=== PATIENT | female | born 1950 | race Caucasian/White ===

== ENCOUNTER → 2021-02-23 | Outpatient (CLI) | payer MEDICARE, BC ==
[2021-02-23 13:43] LABS: Basophils # (A) 0.1 k/uL (0-0.2); Basophils % (A) 1 %; Eosinophils # (A) 0.1 k/uL (0-0.7); Eosinophils % (A) 1 %; HCT 30.9 % (34.0-46.0); HGB 9.5 gm/dL (11.4-16.0); Hypochromasia Moderate; Lymphocytes # (A) 1.7 k/uL (1.0-4.8); Lymphocytes % (A) 19 %; MCH 26.4 pg (25.0-35.0); MCHC 30.7 g/dL (31.0-37.0); MCV 85.8 fL (80.0-100.0); Monocytes # (A) 0.2 k/uL (0-1.0); Monocytes % (A) 2 %; Neutrophils % (A) 77 %; Platelet Count 317 k/uL (150-450); RBC 3.61 m/uL (3.80-5.40); WBC 9.1 k/uL (3.8-10.6)
[2021-02-23 14:14] LABS: Potassium 4.6 mmol/L (3.5-5.1)
== END | disposition home or self-care (01) ==
LOC: LABPAT 12:09
PROVIDERS: ATTEND Urology
DX: Z01.812 Encounter for preprocedural laboratory examination (principal); C67.9 Malignant neoplasm of bladder, unspecified
CPT/HCPCS: 36415; 80048; 85025

== ENCOUNTER → 2021-02-27 | Outpatient (CLI) | payer MEDICARE | END | disposition home or self-care (01) | LOC: LABPAT 10:25 | PROVIDERS: ATTEND Urology | DX: Z01.818 Encounter for other preprocedural examination (principal) | CPT/HCPCS: 93005 ==

== ENCOUNTER 2021-03-02 06:41 | Day surgery (SDC) | payer BC, MEDICARE ==
[2021-02-24 12:34] VITALS: BMI 27.8
--- NOTE | 2021-03-01 22:23 | P.HPIHPCON ---
History of Present Illness H&P Date: 03/01/21 Chief Complaint: bladder mass 70 yo male with hx of gross hematuria. She underwent a cystoscopy that showed a large bladder tumor , involving the Trigone and the posterior bladder wall. neither of the ureteral orifices were visualized. Discuss with her the next step is to proceed with TURBT under anesthesia. discussed will attempt to do bilateral retrograde pyelogram at the same time. Discussed the risk which includes by now limited to bleeding, infection , bladder perforation, ureteral orfices scarring. Discussed the potential of stent placement. Discussed potential of needing repeated operations in the future. She understood all the risk and agreed to proceed TURBT and bilateral reterograde pyelogram Consent for Procedure: I have explained the operation/procedure to the patient, including the risks, benefits, side effects, alternative therapies (including not receiving the proposed treatment or service), the likelihood of the patient achieving his/her goals, and potential recuperation problems for the procedure/sedation/analgesia, as well as any blood products, if indicated. I also explained to the patient the risks, benefits and side effects of the alternatives, as well as the risks related to not receiving the proposed procedure, care, treatment, or services. Past Medical History Past Medical History: Cancer, Eye Disorder, Liver Disease, Thyroid Disorder Additional Past Medical History / Comment(s): Hx blood clots in eyes. 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 Hx Hepatitis B. Graves Disease. Current bladder cancer. History of Any Multi-Drug Resistant Organisms: None Reported Past Surgical History: Appendectomy, Hysterectomy, Tubal Ligation Additional Past Surgical History / Comment(s): Major/multiple surgeries on both eyes. Socket removed from right eye. Past Anesthesia/Blood Transfusion Reactions: No Reported Reaction Past Psychological History: No Psychological Hx Reported Smoking Status: Current every day smoker Past Alcohol Use History: None Reported Additional Past Alcohol Use History / Comment(s): Has been smoking many yrs, 1PPD. Past Drug Use History: None Reported - Past Family History Mother Family Medical History: Neurologic Disorder Additional Family Medical History / Comment(s): Carole Diana. Father Family Medical History: Unable to Obtain Medications and Allergies Home Medications Medication Instructions Recorded Confirmed Type Aspirin [Adult Low Dose Aspirin EC] 81 mg PO DAILY 02/24/21 02/24/21 History Morphine Sulfate [Maile] 50 mg PO BID 02/24/21 02/24/21 History QUEtiapine [SEROquel] 50 mg PO HS 02/24/21 02/24/21 History Synthroid (Unknown Dose) 1 tab PO DAILY 02/24/21 02/24/21 History oxyCODONE ER [OxyCONTIN] 15 mg PO BID 02/24/21 02/24/21 History Allergies Allergy/AdvReac Type Severity Reaction Status Date / Time Penicillins Allergy Dyspnea Verified 02/24/21 11:46 Surgical - Exam - General well developed, moderate distress, moderate pain - Eyes PERRL, normal ocular movement - ENT normal pinna, normal nares - Respiratory normal expansion, normal respiratory effort - Psychiatric oriented to time, oriented to person, oriented to place Assessment and Plan Assessment: 70 yo female with hx of bladder tumor -OR TURBT and bilateral reterograde peylogram
[~2021-03-02 06:41] MED LIST: CIPROFLOXACIN/DEXTROSE PMX 400 MG in DEXTROSE/WATER 1 200ML.BAG IVPB PRN
[2021-03-02] MEDS ORDERED: ONDANSETRON 4 MG/2 ML VIAL ONE (07:06)
[2021-03-02] MEDS ORDERED: LACTATED RINGERS 1,000 ML IV ONE ×2 (07:22→09:18)
[2021-03-02] MEDS ORDERED: LIDOCAINE 1% (10MG/ML) FOR IV START INTRADERMA ONE (07:22)
[2021-03-02] MEDS ORDERED: DEXAMETHASONE SOD PHOSPHATE 4 MG/ML 1 ML VIAL IV ONE (07:23)
[2021-03-02] MEDS ORDERED: ONDANSETRON 4 MG/2 ML VIAL IVP ONE (07:23)
[2021-03-02] MEDS ORDERED: HYDROmorphone (PF) 1 MG/ML ONE (07:30)
[2021-03-02] MEDS ORDERED: ROCURONIUM 10 MG/ML (5 ML VIAL) IV ONE (07:30)
[2021-03-02] MEDS ORDERED: WATER FOR INJECTION, STERILE 10 ML VIAL IV ONE (07:30)
[2021-03-02] MEDS ORDERED: ePHEDrine SULFATE/0.9% NACL/PF 50 MG/5 ML SYRINGE IV ONE (07:30)
[2021-03-02] MEDS ORDERED: PROPOFOL 10 MG/ML 20 ML VIAL IV ONE (07:30)
[2021-03-02] MEDS ORDERED: GLYCOPYRROLATE 0.2 MG/ML 2 ML VIAL ONE (07:30)
[2021-03-02] MEDS ORDERED: NEOSTIGMINE 1 MG/ML 10 ML VIAL ONE (07:30)
[2021-03-02] MEDS ORDERED: fentaNYL (PF) 50 MCG/ML 2 ML AMP ONE (07:30)
[2021-03-02] MEDS ORDERED: MIDAZOLAM 2 MG/2 ML VIAL ONE (07:30)
[2021-03-02] MEDS ORDERED: LIDOCAINE 1% INJ 10MG/ML (20 ML MDV) ONE (07:30)
[2021-03-02] MEDS ORDERED: SUCCINYLCHOLINE CHLORIDE 100 MG/5 ML SYR IV ONE (07:30)
[2021-03-02] MEDS ORDERED: IOPAMIDOL-370 50ML BTL MISCELLANE ONE (07:35)
--- NOTE | 2021-03-02 11:04 | P.OP ---
Date of Procedure: 03/02/21 Preoperative Diagnosis: Bladder tumor Postoperative Diagnosis: Same Procedure(s) Performed: TURBT (large) Implants: none Anesthesia: RADHA Surgeon: Eddie Forrest Estimated Blood Loss (ml): 50 Pathology: other (bladder tumor) Condition: stable Disposition: PACU Indications for Procedure: 70 yo male with hx of gross hematuria. She underwent a cystoscopy that showed a large bladder tumor , involving the Trigone and the posterior bladder wall. neither of the ureteral orifices were visualized. Discuss with her the next step is to proceed with TURBT under anesthesia. discussed will attempt to do bilateral retrograde pyelogram at the same time. Discussed the risk which includes by now limited to bleeding, infection , bladder perforation, ureteral orfices scarring. Discussed the potential of stent placement. Discussed potential of needing repeated operations in the future. She understood all the risk and agreed to proceed TURBT and bilateral reterograde pyelogram Operative Findings: Lateral large bladder tumor involving the trigone, the left lateral wall, the dome, the anterior bladder wall, and the bladder neck, tumor covered approximetely 70% of the bladder total area of resection was greater than 15 cm Description of Procedure: Patient was brought to the operating room, general anesthesia was induced. She was prepped and draped so fashion a placement dorsal lithotomy position. Resectoscope fitted with a 25-Romanian sheath was inserted per urethra, cystoscopy was performed which showed a large bladder tumor covering approximately 70% of the bladder. The tumor involved the trigone, the left lateral wall, the dome, the anterior bladder wall, and the bladder neck. Using bipolar resectoscope the tumor was resected down, initially resection was started at the trigone and then carried to the left lateral wall area of note neither of the ureteral orifices were visualized during resection, but caution was used not use cauterize at the areas of the ureteral orifices. approximately 3 hours were spent resecting the tumor, approximately 80% of the tumor was resected, there was still some residual tumor at the dome and the bladder neck, decision was made not to proceed with resecting those areas given the poor visualization, and more than 3 hours were spent resecting. additionally tumor was consistent with T2 bladder cancer. the bladder was emptied and the case, tumor chips were sent to pathology. A 22-Romanian hematuria catheter was placed and irrigated to light pink. The patient tolerated the procedure well was taken to PACU in stable cond ition
[2021-03-02 11:13] VITALS: TEMP 96.9
[2021-03-02] MEDS ORDERED: HYDROmorphone 1 MG/ML 1 ML SYRINGE IVP ONE ×2 (11:50→11:57)
[2021-03-02] MEDS ORDERED: ACETAMINOPHEN IV (For NPO) 1,000 MG/100 ML VIAL IVPB ONE (12:36)
[2021-03-02] MEDS ORDERED: fentaNYL (PF) 50 MCG/ML 2 ML AMP IVP ONE (13:10)
[2021-03-02 15:52] VITALS: BP 110/77; PULSE 75; RESP 16
== END 2021-03-02 17:25 | disposition home or self-care (01) ==
LOC: OR 06:41
PROVIDERS: ATTEND Urology
DX: C67.9 Malignant neoplasm of bladder, unspecified (principal); K76.9 Liver disease, unspecified; E07.9 Disorder of thyroid, unspecified; G89.29 Other chronic pain; H57.10 Ocular pain, unspecified eye; H54.8 Legal blindness, as defined in USA; Z86.19 Personal history of other infectious and parasitic diseases; E05.00 Thyrotoxicosis with diffuse goiter without thyrotoxic crisis or storm; Z90.89 Acquired absence of other organs; Z98.51 Tubal ligation status; Z90.710 Acquired absence of both cervix and uterus; F17.210 Nicotine dependence, cigarettes, uncomplicated; Z87.442 Personal history of urinary calculi; Z97.2 Presence of dental prosthetic device (complete) (partial); Z82.0 Family history of epilepsy and other diseases of the nervous system; Z79.82 Long term (current) use of aspirin; Z79.890 Hormone replacement therapy; Z79.891 Long term (current) use of opiate analgesic; Z79.899 Other long term (current) drug therapy; Z88.0 Allergy status to penicillin
CPT/HCPCS: 88307; 52240; J2250; J1100; J2710; J2405; J2001; J3010; J0744; J1170; J0131; J0330; J2704; Q9967

== ENCOUNTER 2021-03-04 17:46 | Emergency (ER) | payer MEDICARE ==
[2021-03-04 17:54] VITALS: BP 118/70; PULSE 63; RESP 20; TEMP 98.7
[2021-03-04] MEDS ORDERED: HYDROmorphone 0.5 MG/0.5 ML SYRINGE IM STA (20:59)
--- NOTE | 2021-03-04 21:01 | ED ---
Recheck HPI - General Chief Complaint: Recheck/Abnormal Lab/Rx Stated Complaint: Catheter Issue Time Seen by Provider: 03/04/21 20:00 Source: patient Mode of arrival: ambulatory Limitations: no limitations - History of Present Illness Initial Comments: 70-year-old female who recently had a procedure to remove bladder cancer with indwelling Rios catheter. Patient states that she is now draining around the Rios catheter. She states she's had a lot of discomfort after the surgery in the lower suprapubic region. Patient denies any fevers chest pain shortness of breath or leg swelling. Patient denies additional complaints and states she presented for leakage of the Rios catheter today. Patient states she is just about due for her pain medications. Remaining of review systems negative upon arrival patient appears well nontoxic no acute distress - Related Data Home Medications Medication Instructions Recorded Confirmed Aspirin [Adult Low Dose Aspirin EC] 81 mg PO DAILY 02/24/21 03/02/21 Morphine Sulfate [Maile] 50 mg PO BID 02/24/21 03/02/21 QUEtiapine [SEROquel] 50 mg PO HS 02/24/21 03/02/21 Synthroid (Unknown Dose) 1 tab PO DAILY 02/24/21 03/02/21 oxyCODONE ER [OxyCONTIN] 15 mg PO BID 02/24/21 03/02/21 Previous Rx's Medication Instructions Recorded Oxybutynin Xl [Ditropan Xl] 5 mg PO DAILY #10 tab.er.24 03/02/21 Sulfamethox-Tmp 800-160Mg [Bactrim 1 tab PO Q12HR #6 tab 03/02/21 DS 800-160 mg] Allergies Allergy/AdvReac Type Severity Reaction Status Date / Time Penicillins Allergy Dyspnea Verified 03/04/21 17:54 Review of Systems ROS Statement: Those systems with pertinent positive or pertinent negative responses have been documented in the HPI. ROS Other: All systems not noted in ROS Statement are negative. Past Medical History Additional Past Medical History / Comment(s): Blind, Graves, Brain tumor. History of Any Multi-Drug Resistant Organisms: None Reported Additional Past Surgical History / Comment(s): Bladder surgery Past Psychological History: No Psychological Hx Reported Smoking Status: Current every day smoker Past Alcohol Use History: None Reported Past Drug Use History: None Reported General Exam - General Exam Comments Initial Comments: General: The patient is awake and alert, in no distress Eye: +3 mm pupils are equal, round and reactive to light, extra-ocular movements are intact. No nystagmus. There is normal conjunctiva bilaterally. No signs of icterus. Ears, nose, mouth and throat: There are moist mucous membranes and no oral lesions. Neck: The neck is supple, there is no tenderness or JVD. Cardiovascular: There is a regular rate and rhythm. No murmur, rub or gallop is appreciated. Respiratory: Lungs are clear to auscultation, respirations are non-labored, breath sounds are equal. No wheezes, stridor, rales, or rhonchi. Gastrointestinal: Soft, non-distended, non-tender abdomen without masses or organomegaly noted. There is no rebound or guarding present. Musculoskeletal: Normal ROM, no tenderness. Strength 5/5. Sensation intact. Radial pulses equal bilaterally 2+. Neurological: A&O x 3. CN II-XII intact grossly, There are no obvious motor or sensory deficits. Coordination appears grossly intact. Speech is normal. Skin: Skin is warm and dry and no rashes or lesions are noted. Psychiatric: Cooperative, appropriate mood & affect, normal judgment. Limitations: no limitations Course Vital Signs 03/04/21 17:51 Temperature 98.7 F Pulse Rate 63 Respiratory 20 Rate Blood Pressure 118/70 O2 Sat by Pulse 94 L Oximetry Medical Decision Making - Medical Decision Making 70-year-old female presenting for a leaking catheter. Catheter was removed and replaced there was a lot of tissue within the catheter most likely occluding causing the leakage. Patient has no leakage at this time. Patient has no fevers. She denies additional symptoms she states she does have some postoperative pain medicine present since the procedure note noted increase. Patient is provided 1 dose of IM Dilaudid for this pain and was discharged. Ever discussed the case by attending provider Disposition Clinical Impression: Malfunction of Rios catheter Disposition: HOME SELF-CARE Condition: Good Instructions (If sedation given, give patient instructions): Rios Catheter Placement and Care (ED) Additional Instructions: Please use medication as discussed. Please follow-up with family doctor or urologist in next 1- 2 days. Please return to emergency room if the symptoms increase or worsen or for any other concerns. Is patient prescribed a controlled substance at d/c from ED?: No Referrals: Mariana Nowak MD [Primary Care Provider] - 1-2 days Time of Disposition: 21:01
== END 2021-03-04 21:35 | disposition home or self-care (01) ==
LOC: EC 17:46
DX: T83.031A Leakage of indwelling urethral catheter, initial encounter (principal); F17.200 Nicotine dependence, unspecified, uncomplicated; Z85.51 Personal history of malignant neoplasm of bladder; Z88.0 Allergy status to penicillin; Z79.82 Long term (current) use of aspirin
CPT/HCPCS: 99283; 96372; J1170

== ENCOUNTER 2021-03-05 19:58 | Emergency (ER) | payer MEDICARE ==
[2021-03-05 20:09] VITALS: BP 104/55; PULSE 75; RESP 18; TEMP 97.9
--- NOTE | 2021-03-05 22:10 | ED ---
Female Urogenital HPI - General Chief complaint: Urogenital Stated complaint: Urogenital Time Seen by Provider: 03/05/21 21:44 Source: patient Mode of arrival: wheelchair Limitations: no limitations - History of Present Illness Initial comments: 70-year-old female presenting to the emergency department today for chief complaint of blanco leaking. Patient states her Blanco has not been leaking on and off for 4 days. She states that she recently had bladder cancer surgery done by Dr Forrest. Pt states she would like to just have the blanco removed at this time. Patient denies fevers. Pt denies increasing pain. Patient denies blood in urine. Patient has no additional complaints. Upon arrival she appears nontoxic in no acute distress. - Related Data Home Medications Medication Instructions Recorded Confirmed QUEtiapine [SEROquel] 50 mg PO HS 02/24/21 03/05/21 oxyCODONE ER [OxyCONTIN] 15 mg PO BID 02/24/21 03/05/21 Levothyroxine Sodium [Synthroid] 175 mcg PO DAILY 03/05/21 03/05/21 Morphine Sulfate [Morphine Sulfate 60 mg PO BID 03/05/21 03/05/21 ER] Previous Rx's Medication Instructions Recorded Oxybutynin Chloride [Ditropan] 5 mg PO TID 5 Days #15 tab 03/05/21 Allergies Allergy/AdvReac Type Severity Reaction Status Date / Time Penicillins Allergy Dyspnea Verified 03/05/21 22:58 Review of Systems ROS Statement: Those systems with pertinent positive or pertinent negative responses have been documented in the HPI. ROS Other: All systems not noted in ROS Statement are negative. Past Medical History Additional Past Medical History / Comment(s): Blind, Graves, Brain tumor. History of Any Multi-Drug Resistant Organisms: None Reported Past Surgical History: Hysterectomy, Tonsillectomy Additional Past Surgical History / Comment(s): Bladder surgery- tumor removed from bladder. eys Past Psychological History: Anxiety Smoking Status: Current every day smoker Past Alcohol Use History: None Reported Past Drug Use History: None Reported General Exam - General Exam Comments Initial Comments: General: The patient is awake and alert, in no distress, and does not appear a cutely ill. Eye: Pupils are equal, round and reactive to light, extra-ocular movements are intact. No nystagmus. There is normal conjunctiva bilaterally. No signs of icterus. Cardiovascular: There is a regular rate and rhythm. No murmur, rub or gallop is appreciated. Respiratory: Lungs are clear to auscultation, respirations are non-labored, breath sounds are equal. No wheezes, stridor, rales, or rhonchi. Gastrointestinal: Soft, non-distended, non-tender abdomen without masses or or ganomegaly noted. There is no rebound or guarding present. Flushed blanco catheter without resistance. Musculoskeletal: Normal ROM, no tenderness. Strength 5/5. Sensation intact. Pulses equal bilaterally 2+. Neurological: A&O x 3. CN II-XII intact grossly, There are no obvious motor or sensory deficits. Coordination appears grossly intact. Speech is normal. Skin: Skin is warm and dry and no rashes or lesions are noted. Psychiatric: Cooperative, appropriate mood & affect, normal judgment. Limitations: no limitations Course Vital Signs 03/05/21 20:04 Temperature 97.9 F Pulse Rate 75 Respiratory 18 Rate Blood Pressure 104/55 O2 Sat by Pulse 99 Oximetry - Reevaluation(s) Reevaluation #1: Consulted Dr. Clarke covering for Dr Forrest recommending keeping blanco in if flushing and begin ditropan 5mg TID. Medical Decision Making - Medical Decision Making 70-year-old male presenting to the ER today for chief complaint of leaking catheter. Consulted urologist Dr Clarke. Recommended TURP hand as well as keeping Blanco in place.. Blanco did flush without difficulty. No additional complaints or concerns. patient discharged appearing well. Disposition Clinical Impression: Blanco catheter problem Disposition: HOME SELF-CARE Condition: Good Instructions (If sedation given, give patient instructions): Blanco Catheter Placement and Care (ED) Additional Instructions: Please use medication as discussed. Please follow-up with urology in 2- 3days. Please return to emergency room if the symptoms increase or worsen or for any other concerns. Prescriptions: Oxybutynin Chloride [Ditropan] 5 mg PO TID 5 Days #15 tab Is patient prescribed a controlled substance at d/c from ED?: No Referrals: Mariana Nowak MD [Primary Care Provider] - 1-2 days Time of Disposition: 23:07
[2021-03-05] MEDS ORDERED: OXYBUTYNIN CHLORIDE 5 MG TAB PO ONE (23:05)
== END 2021-03-05 23:55 | disposition home or self-care (01) ==
LOC: EC 19:58
DX: T83.031A Leakage of indwelling urethral catheter, initial encounter (principal); F41.9 Anxiety disorder, unspecified; F17.200 Nicotine dependence, unspecified, uncomplicated; Z88.0 Allergy status to penicillin
CPT/HCPCS: 99283

== ENCOUNTER → 2021-03-28 | Outpatient (CLI) | payer MEDICARE, BC ==
--- NOTE | 2021-03-29 07:01 | CT ---
EXAMINATION TYPE: CT abdomen pelvis wo con DATE OF EXAM: 03/28/2021 HISTORY: Neoplasm of bladder CT DLP: 767 mGycm. Automated Exposure Control for Dose Reduction was Utilized. TECHNIQUE: CT scan of the abdomen and pelvis is performed without oral or IV contrast. COMPARISON: Renal ultrasound June 15, 2011 FINDINGS: Within the limitations of a non-contrast study, the following observations are made. LUNG BASES: From motion artifact degradation, lung bases grossly clear. LIVER/GB: Prominent right hepatic lobe. Intraluminal irregular marginated hyperdense gallstones in ga llbladder. No surrounding inflammatory change. Gallbladder wall thickness perhaps mildly thickened. M ild extrahepatic biliary dilatation up to 11 mm coronal image 27. Mild left-sided central intrahepati c biliary dilatation . Slight gradual tapering towards the ampulla, no obstructing hyperdense calculu s clearly seen. PANCREAS: Probably moderate generalized atrophy. SPLEEN: No significant abnormality is seen. ADRENALS: Low dense 1.8 cm right adrenal mass axial image 17 consistent with benign lipid rich adenom a. KIDNEYS: Right kidney has 2.3 cm low dense lesion suspected simple thin-walled cyst posteriorly mid t o lower pole level axial image 30. Left kidney has 1.3 cm posterior exophytic low-density lesion susp ected thin-walled cyst lower pole level axial image 33. There is [id number] left-sided hydron ephrosis. No right-sided hydronephrosis. There is large lobulated irregular soft tissue mass occupyin g left testicle bladder with poor margins, there is indistinct fat plane from the remnant lower uteri ne segment or cervix axial image 65 for reference. Some irregular hyperdense material within bladder lumen could reflect internal debris. Lobulated and irregular bladder mass or neoplasm measures roughl y 8.5 x 7.0 x 6.5 cm axial image 64 and coronal image 54 BOWEL: Slightly suboptimal evaluation of bowel without enteric contrast. No suspicious small or large bowel dilatation. Small bowel feces sign distal ileum.. GENITAL ORGANS: Uterus is noted surgically absent. Poor fat plane separation of the lower uterine seg ment and/or cervix with adjacent bladder mass or neoplasm LYMPH NODES: No greater than 1cm abdominal or pelvic lymph nodes are appreciated. OSSEOUS STRUCTURES: Levoconvex scoliosis centered at L3-L4 level. Posterior disc herniations L3-L4 an d L1-L2 levels efface the anterior thecal sac. Moderate disc space narrowing and vacuum disc phenomen on L5-S1 level. Facet arthropathy lower lumbar levels. Moderate axial joint space loss in both hips. OTHER: Mild calcified plaque of the aorta extends into branch vessels. IMPRESSION: 1. Large bladder mass or neoplasm in the left aspect of bladder as irregular and lobulated margins, i ndistinct fat plane from the adjacent remnant lower uterine segment and/or cervix. Cannot exclude loc al invasion. Neoplasm is causing moderate to severe left-sided obstructive hydronephrosis. 2. Gallstone in gallbladder with perhaps mild gallbladder wall thickening. There is mild borderline m oderate central left intrahepatic and extrahepatic biliary dilatation. Correlate to exclude acute cho lecystitis. Consider follow-up ERCP or MRCP evaluation.
== END | disposition home or self-care (01) ==
LOC: RADCTMAIN 16:00
PROVIDERS: ATTEND Urology
DX: C67.9 Malignant neoplasm of bladder, unspecified (principal); K80.20 Calculus of gallbladder without cholecystitis without obstruction; N13.30 Unspecified hydronephrosis
CPT/HCPCS: 74176; 82565; 84520

== ENCOUNTER 2021-04-03 09:05 | Day surgery (SDC) | payer MEDICARE, BC ==
[2021-03-30 16:11] VITALS: BMI 27.4
--- NOTE | 2021-03-31 17:04 | P.HPIHPCON ---
History of Present Illness H&P Date: 03/31/21 Chief Complaint: Left hydronephrosis This is a 70-year-old female with history of bladder cancer, she underwent TURBT, attempted stent placements on March 02. stent placement was unsuccessful due to nonvisualization of the ureteral orifice. She underwent a CT abdomen and pelvis that demonstrated evidence of an extensive bladder tumor, causing severe left hydronephrosis on the left side. Patient has been having worsening creatinine. Discussed with her given her bladder cancer , and evidence of local invasion, the next a piece is to proceed with a cystectomy. Discussed with her we'll attempt to optimize her kidney function prior to proceeding with surgery. Discussed with her the option of doing an nephrostomy tube placement. Discussed with her the risks which includes but not limited to bleeding, infection, injury to nearby organs. She understood all the risk and agreed to proceed with a nephrostomy tube. Nephrostomy tube will be performed by interventional radiology Consent for Procedure: I have explained the operation/procedure to the patient, including the risks, benefits, side effects, alternative therapies (including not receiving the proposed treatment or service), the likelihood of the patient achieving his/her goals, and potential recuperation problems for the procedure/sedation/analgesia, as well as any blood products, if indicated. I also explained to the patient the risks, benefits and side effects of the alternatives, as well as the risks related to not receiving the proposed procedure, care, treatment, or services. Past Medical History Past Medical History: Cancer, Thyroid Disorder Additional Past Medical History / Comment(s): bladder cancer, Blind, Graves, Brain tumor, no surgery History of Any Multi-Drug Resistant Organisms: None Reported Past Surgical History: Hysterectomy, Tonsillectomy Additional Past Surgical History / Comment(s): Bladder surgery- tumor removed from bladder. eye sx Past Anesthesia/Blood Transfusion Reactions: No Reported Reaction Smoking Status: Current every day smoker Medications and Allergies Home Medications Medication Instructions Recorded Confirmed Type QUEtiapine [SEROquel] 50 mg PO HS 02/24/21 03/30/21 History oxyCODONE ER [OxyCONTIN] 15 mg PO BID 02/24/21 03/30/21 History Levothyroxine Sodium [Synthroid] 175 mcg PO DAILY 03/05/21 03/30/21 History Morphine Sulfate [Morphine Sulfate 60 mg PO BID 03/05/21 03/30/21 History ER] Allergies Allergy/AdvReac Type Severity Reaction Status Date / Time Penicillins Allergy Dyspnea Verified 03/30/21 16:02 Surgical - Exam - General well developed, well nourished, no distress, no pain - Eyes PERRL, normal ocular movement - ENT normal nares, normal mucosa - Respiratory normal expansion, normal respiratory effort - Psychiatric oriented to time, oriented to person, oriented to place Assessment and Plan Assessment: 70-year-old female history of left-sided hydronephrosis -Left nephrostomy tube placement
[~2021-04-03 09:05] MED LIST changes: -CIPROFLOXACIN/DEXTROSE PMX 400 MG in DEXTROSE/WATER 1 200ML.BAG IVPB PRN; +LEVOFLOXACIN 250MG-D5W PMX 250 MG in DEXTROSE/WATER 1 50ML.BAG IVPB ONE
[2021-04-03 10:16] LABS: Anisocytosis Slight; Basophils % (A) 0 %; Eosinophils # (A) 0.1 k/uL (0-0.7); Eosinophils % (A) 1 %; HCT 28.8 % (34.0-46.0); HGB 8.8 gm/dL (11.4-16.0); Hypochromasia Marked; Lymphocytes # (A) 1.3 k/uL (1.0-4.8); Lymphocytes % (A) 16 %; MCH 26.3 pg (25.0-35.0); MCHC 30.7 g/dL (31.0-37.0); MCV 85.8 fL (80.0-100.0); Mean Platelet Volume 7.1; Monocytes # (A) 0.2 k/uL (0-1.0); Monocytes % (A) 2 %; Neutrophils # (A) 6.5 k/uL (1.3-7.7); Neutrophils % (A) 80 %; Platelet Count 270 k/uL (150-450); RBC 3.36 m/uL (3.80-5.40); RDW 17.2 % (11.5-15.5); WBC 8.1 k/uL (3.8-10.6)
[2021-04-03 10:29] LABS: Calcium 10.3 mg/dL (8.4-10.2)
[2021-04-03] MEDS: MIDAZOLAM 2 MG/2 ML VIAL IVP ONE ×5 (10:47→11:57)
[2021-04-03] MEDS ORDERED: IV FLUID CONTINUATION 300 ML IV ONE (10:48)
[2021-04-03] MEDS: fentaNYL (PF) 50 MCG/ML 2 ML AMP IVP ONE ×3 (11:00→12:14)
[2021-04-03] MEDS ORDERED: fentaNYL (PF) 50 MCG/ML 2 ML AMP IVP ONE ×2 (11:15→11:49)
[2021-04-03] MEDS ORDERED: IOPAMIDOL-250 50ML BTL INTRAARTER ONE (12:14)
[2021-04-03 13:47] VITALS: RESP 16
[2021-04-03 16:43] VITALS: BP 84/50; PULSE 68
--- NOTE | 2021-04-04 14:04 | CT ---
EXAMINATION TYPE: CT Guided Neph Tube Change, IR nephrostomy, US guide intraoperative DATE OF EXAM: 04/03/2021 COMPARISON: CT abdomen pelvis 03/28/2021 demonstrating left hydroureteronephrosis and obstructing larg e bladder mass. HISTORY: Hydronephrosis, ureteral obstruction WIRE BRUSH MAKER: Dr. Renate Davison MEDICATIONS: Levaquin 250 mg-D5x Pmx premix 50 mL Versed 1.5 mg Fentanyl 150 mcg PROCEDURE: The procedure was discussed with the patient. The risks, complications, benefits, and alternatives we re discussed and any questions were answered. Informed consent was obtained. Levaquin 250 mg was administered intravenously prior to start of procedure. Moderate sedation was administered and monitored by radiology nursing, under direct physician supervi raiza. Preprocedure preliminary ultrasound imaging demonstrated moderate left hydronephrosis, with significa nt bowel gas surrounding the left kidney, and a small intercostal window for access. Patient demonstrated significant movement during the portion of the procedure within the Fire Prevention Captain, de spite reminders to remain still. Maximal barrier technique was utilized. The skin overlying the left kidney was localized using ultra sound and the overlying skin prepped and draped. Ultrasound was utilized with sterile technique. 1% Lidocaine used for local anesthesia. Skin chuck was made with a scalpel. Access was gained under ult rasound with a 20-gauge needle to the left kidney. Urine returned in the hub of the needle. Gentle hand-injection of 3 mm of iodinated contrast under fluoroscopy demonstrated good flow into the left r enal collecting system. A 0.018 inch wire was advanced under fluoroscopy, and seen within the left r enal collecting system. As attempts were made to dilate the access site, the patient was moving sign ificantly, and access was lost. There was also marked obscuration of the kidney due to significant mellisa wel gas. The decision was made to move the procedure to the CT scanner. All needles were removed and a sterile bandage was applied to the access site. The patient was placed prone on the CT table. Intraprocedure preliminary CT imaging demonstrated iodi nated contrast within the left renal collecting system with moderate hydronephrosis and hydroureter. Maximal barrier technique was utilized. The skin overlying the left kidney was localized using CT and the overlying skin prepped and draped. 1% lidocaine used for local anesthesia. Skin chuck was made wi th a scalpel. Access was gained with intermittent CT guidance with a 21-gauge needle to the left kidn ey. Urine returned in the hub of the needle. A 0.018 inch wire was advanced under intermittent CT kanu johnson seen within the left renal collecting system. The access site was dilated and subsequently an 8.5 English coiled catheter was advanced over wire in the renal pelvis and proximal ureter and fixe d in place. Urine returned in the hub of the catheter. Catheter was fixed to the skin with a stay f ix sterile dressing. The patient remained in stable condition without immediate complication. The p atient was discharged to the short stay unit. Moderate sedation total time: 2.5 hours IMPRESSION: STATUS POST LEFT 8.5 WELSH NEPHROSTOMY TUBE PLACEMENT WITH ULTRASOUND, FLUOROSCOPIC, AND CT GUIDANCE .
--- NOTE | 2021-04-04 14:05 | P.OP ---
Date of Procedure: 04/03/21 Preoperative Diagnosis: Left hydronephrosis due to obstructing bladder mass Postoperative Diagnosis: same Procedure(s) Performed: Ultrasound, fluoroscopy, and CT guided left percutaneous nephrostomy tube placement Implants: 8.5 FR coiled drainage catheter Anesthesia: MAC, local Surgeon: Renate Davison Estimated Blood Loss (ml): 5 Pathology: none sent Condition: stable Disposition: observation
== END 2021-04-03 17:10 | disposition home or self-care (01) ==
LOC: CATHCVL 09:05
PROVIDERS: ATTEND Radiology Diagnostic Radiology
DX: N13.1 Hydronephrosis with ureteral stricture, not elsewhere classified (principal); N32.9 Bladder disorder, unspecified; E07.9 Disorder of thyroid, unspecified; H54.7 Unspecified visual loss; E05.00 Thyrotoxicosis with diffuse goiter without thyrotoxic crisis or storm; Z85.841 Personal history of malignant neoplasm of brain; Z90.710 Acquired absence of both cervix and uterus; Z90.89 Acquired absence of other organs; Z98.890 Other specified postprocedural states; Z79.890 Hormone replacement therapy; Z79.891 Long term (current) use of opiate analgesic; Z79.899 Other long term (current) drug therapy; Z88.0 Allergy status to penicillin
CPT/HCPCS: 80048; 85025; 87635; 50435; J2250; J1956; J3010; Q9966

== ENCOUNTER 2021-04-14 | Day surgery (SDC) | payer MEDICARE | END 2021-04-14 16:00 | disposition home or self-care (01) | DX: Z43.6 Encounter for attention to other artificial openings of urinary tract (principal) ==

== ENCOUNTER 2021-05-04 | Day surgery (SDC) | payer MEDICARE | END 2021-05-04 16:50 | disposition home or self-care (01) | DX: Z43.6 Encounter for attention to other artificial openings of urinary tract (principal) | CPT/HCPCS: 99213 ==

== ENCOUNTER 2021-05-04 16:56 | Inpatient (IN) | payer MEDICARE ==
[2021-05-04] MEDS ORDERED: SODIUM CHLORIDE 0.9% 500 ML 500 ML IV STA (19:14)
--- NOTE | 2021-05-04 19:25 | ED ---
General Adult HPI - General Chief complaint: Weakness Stated complaint: CA PT, Altered mental status Time Seen by Provider: 05/04/21 18:59 Source: family Mode of arrival: wheelchair Limitations: no limitations - History of Present Illness Initial comments: 70 year-old female patient presents to the emergency department for evaluation of increased altered mental status. Patient was recently diagnosed with bladder cancer, underwent surgery, they were unable to remove the entire tumor and she is awaiting a plan after a physician at [facility] and Dr. Forrest urology consult with each other. Daughter states that over the last two weeks she has seemed to decline. States that she is very confused, generally weak, and unable to care for herself. Daughter states she will have episodes where she will outside installer apprentice the same spot for 2 hours and not move. They deny any fever, chills, vomiting, or diarrhea. Patient does have a nephrostomy tube but also voids per urethra. Daughter states that she is incontinent about every 30 minutes and wears a brief. Daughter states she has not been eating or drinking much. Patient does report abdominal pain, but this is not new and related to her diagnosis. - Related Data Home Medications Medication Instructions Recorded Confirmed QUEtiapine [SEROquel] 50 mg PO HS 02/24/21 05/04/21 Levothyroxine Sodium [Synthroid] 175 mcg PO DAILY 03/05/21 05/04/21 Morphine Sulfate [Morphine Sulfate 60 mg PO BID 03/05/21 05/04/21 ER] Ergocalciferol (Vitamin D2) 1,250 mcg PO Q7D 05/04/21 05/04/21 [Drisdol (50,000 Iu)] Hydrocortisone Cream 1 applic TOPICAL QID 05/04/21 05/04/21 [Hydrocortisone 2.5% Cream] oxyCODONE HCL [OxyCONTIN] 20 mg PO BID 05/04/21 05/04/21 Allergies Allergy/AdvReac Type Severity Reaction Status Date / Time Penicillins Allergy Dyspnea Verified 05/04/21 20:11 Review of Systems ROS Statement: Those systems with pertinent positive or pertinent negative responses have been documented in the HPI. ROS Other: All systems not noted in ROS Statement are negative. Past Medical History Past Medical History: Cancer, Thyroid Disorder Additional Past Medical History / Comment(s): bladder cancer, Blind, Graves, Brain tumor, no surgery History of Any Multi-Drug Resistant Organisms: None Reported Past Surgical History: Hysterectomy, Tonsillectomy Additional Past Surgical History / Comment(s): Bladder surgery- tumor removed from bladder. eye sx Past Anesthesia/Blood Transfusion Reactions: No Reported Reaction Past Psychological History: Anxiety Smoking Status: Current every day smoker Past Alcohol Use History: None Reported Past Drug Use History: None Reported General Exam Limitations: physical limitation (Legally blind) General appearance: alert, in no apparent distress Respiratory exam: Present: normal lung sounds bilaterally. Absent: respiratory distress, wheezes, rales, rhonchi, stridor Cardiovascular Exam: Present: regular rate, normal rhythm, normal heart sounds. Absent: systolic murmur, diastolic murmur, rubs, gallop, clicks GI/Abdominal exam: Present: soft, tenderness (Generalized), normal bowel sounds. Absent: distended, guarding, rebound, rigid Neurological exam: Present: alert, CN II-XII intact. Absent: oriented X3 (Oriented 2) Psychiatric exam: Present: normal affect, normal mood Skin exam: Present: warm, dry, intact, normal color. Absent: rash Course Vital Signs 05/04/21 05/05/21 17:01 01:25 Temperature 97.9 F 98.0 F Pulse Rate 60 56 L Respiratory 16 18 Rate Blood Pressure 108/59 116/60 O2 Sat by Pulse 100 96 Oximetry EKG Findings - EKG Comments: EKG Findings:: EKG obtained in 1935 shows sinus bradycardia with a ventricular rate of 51, LA interval 194, QRS duration 60, QT 4:30, QTC 396. No evidence of ST elevation or depression. Medical Decision Making - Medical Decision Making 70-year-old female patient presents medical history significant for bladder cancer, currently awaiting definitive treatment, presents to the emergency depa rtment today for evaluation of altered mental status been worsening over the last couple of weeks. Physical examination reveals generalized abdominal tenderness which is not new. She is currently alert and oriented 2. Afebrile. Labs reviewed and did reveal hemoglobin 9.9. BUN 29, creatinine 1.35, urinalysis showed turbid appearance with 2+ protein, large amount of blood, large leukocyte esterase, greater than 182 red blood cells and white blood cells, many white blood cell clumps, 20 squamous epithelial cells, few amorphous sediment, many bacteria. Will start cefepime, admitted for further evaluation. Consults to infectious disease and urology. Did discuss the case with urologist. Patient and family are agreeable. My attending is Dr. Hampton. - Lab Data Result diagrams: 05/04/21 21:18 05/04/21 21:18 Lab Results 05/04/21 05/04/21 05/04/21 Range/Units 21:18 21:18 21:18 WBC 5.2 (3.8-10.6) k/uL RBC 3.73 L (3.80-5.40) m/uL Hgb 9.9 L (11.4-16.0) gm/dL Hct 30.7 L (34.0-46.0) % MCV 82.2 (80.0-100.0) fL MCH 26.5 (25.0-35.0) pg MCHC 32.2 (31.0-37.0) g/dL RDW 16.8 H (11.5-15.5) % Plt Count 151 (150-450) k/uL MPV 7.6 Neutrophils % 59 % Lymphocytes % 35 % Monocytes % 2 % Eosinophils % 2 % Basophils % 1 % Neutrophils # 3.0 (1.3-7.7) k/uL Lymphocytes # 1.8 (1.0-4.8) k/uL Monocytes # 0.1 (0-1.0) k/uL Eosinophils # 0.1 (0-0.7) k/uL Basophils # 0.0 (0-0.2) k/uL Hypochromasia Moderate Anisocytosis Slight PT 10.4 (9.0-12.0) sec INR 1.0 (<1.2) APTT 16.2 L (22.0-30.0) sec Sodium (137-145) mmol/L Potassium (3.5-5.1) mmol/L Chloride (98-107) mmol/L Carbon Dioxide (22-30) mmol/L Anion Gap mmol/L BUN (7-17) mg/dL Creatinine (0.52-1.04) mg/dL Est GFR (CKD-EPI)AfAm (>60 ml/min/1.73 sqM) Est GFR (CKD-EPI)NonAf (>60 ml/min/1.73 sqM) Glucose (74-99) mg/dL Plasma Lactic Acid Colin (0.7-2.0) mmol/L Calcium (8.4-10.2) mg/dL Magnesium (1.6-2.3) mg/dL Total Bilirubin (0.2-1.3) mg/dL AST (14-36) U/L ALT (4-34) U/L Alkaline Phosphatase (38-126) U/L Troponin I (0.000-0.034) ng/mL Total Protein (6.3-8.2) g/dL Albumin (3.5-5.0) g/dL Urine Color Yellow Urine Appearance Clear (Clear) Urine pH 6.0 (5.0-8.0) Ur Specific [place] 1.013 (1.001-1.035) Urine Protein Negative (Negative) Urine Glucose (UA) Negative (Negative) Urine Ketones Negative (Negative) Urine Blood Negative (Negative) Urine Nitrite Negative (Negative) Urine Bilirubin Negative (Negative) Urine Urobilinogen <2.0 (<2.0) mg/dL Ur Leukocyte Esterase Negative (Negative) Urine RBC (0-5) /hpf Urine WBC (0-5) /hpf Urine WBC Clumps (None) /hpf Ur Squamous Epith Cells (0-4) /hpf Amorphous Sediment (None) /hpf Urine Bacteria (None) /hpf Granular Casts (0) /lpf Coronavirus (PCR) (Not Detectd) 05/04/21 05/04/21 05/04/21 Range/Units 21:18 21:18 21:18 WBC (3.8-10.6) k/uL RBC (3.80-5.40) m/uL Hgb (11.4-16.0) gm/dL Hct (34.0-46.0) % MCV (80.0-100.0) fL MCH (25.0-35.0) pg MCHC (31.0-37.0) g/dL RDW (11.5-15.5) % Plt Count (150-450) k/uL MPV Neutrophils % % Lymphocytes % % Monocytes % % Eosinophils % % Basophils % % Neutrophils # (1.3-7.7) k/uL Lymphocytes # (1.0-4.8) k/uL Monocytes # (0-1.0) k/uL Eosinophils # (0-0.7) k/uL Basophils # (0-0.2) k/uL Hypochromasia Anisocytosis PT (9.0-12.0) sec INR (<1.2) APTT (22.0-30.0) sec Sodium 135 L (137-145) mmol/L Potassium 4.4 (3.5-5.1) mmol/L Chloride 109 H (98-107) mmol/L Carbon Dioxide 18 L (22-30) mmol/L Anion Gap 8 mmol/L BUN 29 H (7-17) mg/dL Creatinine 1.35 H (0.52-1.04) mg/dL Est GFR (CKD-EPI)AfAm 46 (>60 ml/min/1.73 sqM) Est GFR (CKD-EPI)NonAf 40 (>60 ml/min/1.73 sqM) Glucose 100 H (74-99) mg/dL Plasma Lactic Acid Colin 1.6 (0.7-2.0) mmol/L Calcium 11.9 H (8.4-10.2) mg/dL Magnesium 2.4 H (1.6-2.3) mg/dL Total Bilirubin 0.5 (0.2-1.3) mg/dL AST 16 (14-36) U/L ALT 9 (4-34) U/L Alkaline Phosphatase 98 (38-126) U/L Troponin I <0.012 (0.000-0.034) ng/mL Total Protein 7.3 (6.3-8.2) g/dL Albumin 3.2 L (3.5-5.0) g/dL Urine Color Urine Appearance (Clear) Urine pH (5.0-8.0) Ur Specific [place] (1.001-1.035) Urine Protein (Negative) Urine Glucose (UA) (Negative) Urine Ketones (Negative) Urine Blood (Negative) Urine Nitrite (Negative) Urine Bilirubin (Negative) Urine Urobilinogen (<2.0) mg/dL Ur Leukocyte Esterase (Negative) Urine RBC (0-5) /hpf Urine WBC (0-5) /hpf Urine WBC Clumps (None) /hpf Ur Squamous Epith Cells (0-4) /hpf Amorphous Sediment (None) /hpf Urine Bacteria (None) /hpf Granular Casts (0) /lpf Coronavirus (PCR) (Not Detectd) 05/04/21 05/04/21 Range/Units 21:18 23:27 WBC (3.8-10.6) k/uL RBC (3.80-5.40) m/uL Hgb (11.4-16.0) gm/dL Hct (34.0-46.0) % MCV (80.0-100.0) fL MCH (25.0-35.0) pg MCHC (31.0-37.0) g/dL RDW (11.5-15.5) % Plt Count (150-450) k/uL MPV Neutrophils % % Lymphocytes % % Monocytes % % Eosinophils % % Basophils % % Neutrophils # (1.3-7.7) k/uL Lymphocytes # (1.0-4.8) k/uL Monocytes # (0-1.0) k/uL Eosinophils # (0-0.7) k/uL Basophils # (0-0.2) k/uL Hypochromasia Anisocytosis PT (9.0-12.0) sec INR (<1.2) APTT (22.0-30.0) sec Sodium (137-145) mmol/L Potassium (3.5-5.1) mmol/L Chloride (98-107) mmol/L Carbon Dioxide (22-30) mmol/L Anion Gap mmol/L BUN (7-17) mg/dL Creatinine (0.52-1.04) mg/dL Est GFR (CKD-EPI)AfAm (>60 ml/min/1.73 sqM) Est GFR (CKD-EPI)NonAf (>60 ml/min/1.73 sqM) Glucose (74-99) mg/dL Plasma Lactic Acid Colin (0.7-2.0) mmol/L Calcium (8.4-10.2) mg/dL Magnesium (1.6-2.3) mg/dL Total Bilirubin (0.2-1.3) mg/dL AST (14-36) U/L ALT (4-34) U/L Alkaline Phosphatase (38-126) U/L Troponin I (0.000-0.034) ng/mL Total Protein (6.3-8.2) g/dL Albumin (3.5-5.0) g/dL Urine Color Yellow Urine Appearance Turbid H (Clear) Urine pH 7.5 (5.0-8.0) Ur Specific [place] 1.015 (1.001-1.035) Urine Protein 2+ H (Negative) Urine Glucose (UA) Negative (Negative) Urine Ketones Negative (Negative) Urine Blood Large H (Negative) Urine Nitrite Negative (Negative) Urine Bilirubin Negative (Negative) Urine Urobilinogen <2.0 (<2.0) mg/dL Ur Leukocyte Esterase Large H (Negative) Urine RBC >182 H (0-5) /hpf Urine WBC >182 H (0-5) /hpf Urine WBC Clumps Many H (None) /hpf Ur Squamous Epith Cells 20 H (0-4) /hpf Amorphous Sediment Few H (None) /hpf Urine Bacteria Many H (None) /hpf Granular Casts 62 (0) /lpf Coronavirus (PCR) Not Detected (Not Detectd) - Radiology Data Radiology results: report reviewed, image reviewed CT brain showed no acute abdomen abnormalities. Disposition Clinical Impression: UTI (urinary tract infection), Altered mental status Disposition: ADMITTED IP TO THIS [facility] Condition: Serious Decision to Admit Reason: Admit from EC Decision Date: 05/04/21 Decision Time: 22:39
--- NOTE | 2021-05-04 20:25 | CT ---
EXAMINATION TYPE: CT brain wo con DATE OF EXAM: 05/04/2021 COMPARISON: CT brain 09/12/2012 HISTORY: AMS, cancer pt CT DLP: 1094.4 mGycm Automated exposure control for dose reduction was used. Helical imaging through the brain. FINDINGS: There is no hemorrhage or hydrocephalus. Brain density shows a similar appearance, calvarium is intac t. There is cortical atrophy. Mild inflammatory change present in the right maxillary sinus. Frontal sinus and ethmoid air cells also show inflammatory change. Calvarium is intact. IMPRESSION: NO ACUTE ABNORMALITIES EVIDENT.
[2021-05-04 21:29] LABS: Anisocytosis Slight; Basophils % (A) 1 %; Eosinophils # (A) 0.1 k/uL (0-0.7); Eosinophils % (A) 2 %; HCT 30.7 % (34.0-46.0); HGB 9.9 gm/dL (11.4-16.0); Hypochromasia Moderate; Lymphocytes # (A) 1.8 k/uL (1.0-4.8); Lymphocytes % (A) 35 %; MCH 26.5 pg (25.0-35.0); MCHC 32.2 g/dL (31.0-37.0); MCV 82.2 fL (80.0-100.0); Mean Platelet Volume 7.6; Monocytes # (A) 0.1 k/uL (0-1.0); Monocytes % (A) 2 %; Neutrophils % (A) 59 %; Platelet Count 151 k/uL (150-450); RBC 3.73 m/uL (3.80-5.40); RDW 16.8 % (11.5-15.5); WBC 5.2 k/uL (3.8-10.6)
[2021-05-04 21:41] LABS: Albumin 3.2 g/dL (3.5-5.0); Calcium 11.9 mg/dL (8.4-10.2); Magnesium 2.4 mg/dL (1.6-2.3); Potassium 4.4 mmol/L (3.5-5.1); Total Bilirubin 0.5 mg/dL (0.2-1.3); Total Protein 7.3 g/dL (6.3-8.2)
[2021-05-04 21:44] LABS: Prothrombin Time 10.4 sec (9.0-12.0)
[2021-05-04 21:47] LABS: Partial Thromboplastin Time 16.2 sec (22.0-30.0)
[2021-05-04 21:59] LABS: Urobilinogen,Urine <2.0 mg/dL (<2.0)
[2021-05-04] MEDS ORDERED: HYDROmorphone 1 MG/ML 1 ML SYRINGE IVP STA (22:25)
[2021-05-04] MEDS ORDERED: ONDANSETRON 4 MG/2 ML VIAL IVP STA (22:25)
[2021-05-04] MEDS ORDERED: CEFEPIME 2 GM in SODIUM CHLORIDE 0.9% 100 ML IVPB STA (22:27)
[2021-05-04 22:28] LABS: Appearance,Urine Clear (Clear); Color,Urine Yellow; Specific Gravity,Urine 1.013 (1.001-1.035)
[2021-05-04 22:29] LABS: Glucose,Urine (UA) Negative (Negative); Ketones,Urine Negative (Negative); Protein,Urine Negative (Negative)
[2021-05-04 22:30] LABS: Bilirubin,Urine Negative (Negative); Blood,Urine Negative (Negative); Leukocyte Esterase,Urine Negative (Negative); Nitrite,Urine Negative (Negative)
[2021-05-04 22:33] LABS: Appearance,Urine Turbid (Clear); Color,Urine Yellow; Specific Gravity,Urine 1.015 (1.001-1.035)
[2021-05-04 22:34] LABS: Bilirubin,Urine Negative (Negative); Blood,Urine Large (Negative); Glucose,Urine (UA) Negative (Negative); Ketones,Urine Negative (Negative); Nitrite,Urine Negative (Negative); PH, Urine 7.5 (5.0-8.0); Protein,Urine 2+ (Negative); Urobilinogen,Urine <2.0 mg/dL (<2.0)
[2021-05-04 22:35] LABS: Leukocyte Esterase,Urine Large (Negative); RBC,Urine >182 /hpf (0-5); Squamous Epithelial Cell,Urine 20 /hpf (0-4); WBC,Urine >182 /hpf (0-5)
[2021-05-04] MEDS ORDERED: NALOXONE 0.4 MG/ML 1 ML VIAL IV PRN (22:35)
[2021-05-04] MEDS ORDERED: ONDANSETRON 4 MG/2 ML VIAL IVP PRN (22:35)
[2021-05-04 22:36] LABS: Amorphous Sediment,Urine Few /hpf; Bacteria,Urine Many /hpf; Granular Casts,Urine 62 /lpf (0)
[2021-05-04] MEDS: SODIUM CHLORIDE 0.9% 1,000 ML IV SCH (23:31)
[2021-05-05] MEDS: HYDROmorphone 1 MG/ML 1 ML SYRINGE IVP PRN ×3 (01:46→08:08)
[2021-05-05] MEDS ORDERED: CEFEPIME 2 GM in SODIUM CHLORIDE 0.9% 100 ML IVPB SCH (08:00)
[2021-05-05] MEDS ORDERED: oxyCODONE ER 20 MG TAB.ER.12H PO STA (10:11)
[2021-05-05] MEDS ORDERED: MORPHINE SULFATE ER 60 MG TABLET PO STA (10:12)
[2021-05-05] MEDS ORDERED: LACTULOSE 20 GM/30 ML CUP PO PRN (12:50)
--- NOTE | 2021-05-05 14:40 | P.HPIM ---
History of Present Illness 70-year-old female was brought in because of concerns of altered mental status. Patient is on multiple narcotic medications which is contributing to altered mental status patient is also constipated with the distended and tympanic a bdomen patient is complaining of for severe crampy abdominal pain because of that. Marked any abdominal x-ray patient will be started on lactulose. Patient had a brain CT did not show any significant abnormality patient had a bladder mass which was partially resected patient denied any obvious immaturity although patient had urinalysis consistent with dementia with highly elevated white blood cell count and significant contamination. Since that partial tumor removal patient was having issues and functional decline. Although there is no obvious evidence of infection patient doesn't have leukocytosis and considering abnormal urine patient was started on cefepime which will be discontinued and patient was started on ceftriaxone until patient is evaluated by urology and if urology doesn't believe patient will require antibiotics at that time antibiotics were discontinued. Review of Systems REVIEW OF SYSTEMS: CONSTITUTIONAL: No fever, no malaise, no fatigue. HEENT: No recent visual problems or hearing problems. Denied any sore throat. CARDIOVASCULAR: No chest pain, orthopnea, PND, no palpitations, no syncope. PULMONARY: No shortness of breath, no cough, no hemoptysis. GASTROINTESTINAL: As mentioned in HPI no nausea no vomiting NEUROLOGICAL: No headaches, no weakness, no numbness. HEMATOLOGICAL: Denies any bleeding or petechiae. GENITOURINARY: Denies any burning micturition, frequency, or urgency. MUSCULOSKELETAL/RHEUMATOLOGICAL: Denies any joint pain, swelling, or any muscle pain. ENDOCRINE: Denies any polyuria or polydipsia. The rest of the 14-point review of systems is negative. Past Medical History Past Medical History: Cancer, Thyroid Disorder Additional Past Medical History / Comment(s): bladder cancer, Blind, Graves, Brain tumor, no surgery History of Any Multi-Drug Resistant Organisms: None Reported Past Surgical History: Hysterectomy, Tonsillectomy Additional Past Surgical History / Comment(s): Bladder surgery- tumor removed from bladder. eye sx Past Anesthesia/Blood Transfusion Reactions: No Reported Reaction Past Psychological History: Anxiety Smoking Status: Current every day smoker Past Alcohol Use History: None Reported Past Drug Use History: None Reported Medications and Allergies Home Medications Medication Instructions Recorded Confirmed Type QUEtiapine [SEROquel] 50 mg PO HS 02/24/21 05/04/21 History Levothyroxine Sodium [Synthroid] 175 mcg PO DAILY 03/05/21 05/04/21 History Morphine Sulfate [Morphine Sulfate 60 mg PO BID 03/05/21 05/04/21 History ER] Ergocalciferol (Vitamin D2) 1,250 mcg PO Q7D 05/04/21 05/04/21 History [Drisdol (50,000 Iu)] Hydrocortisone Cream 1 applic TOPICAL QID 05/04/21 05/04/21 History [Hydrocortisone 2.5% Cream] oxyCODONE HCL [OxyCONTIN] 20 mg PO BID 05/04/21 05/04/21 History Allergies Allergy/AdvReac Type Severity Reaction Status Date / Time Penicillins Allergy Dyspnea Verified 05/04/21 20:11 Physical Exam Vitals: Vital Signs Temp Pulse Resp BP Pulse Ox 05/05/21 13:03 59 L 22 99/84 95 05/05/21 10:48 98.3 F 58 L 103/66 97 05/05/21 07:58 98.8 F 55 L 18 114/97 96 05/05/21 01:25 98.0 F 56 L 18 116/60 96 05/04/21 17:01 97.9 F 60 16 108/59 100 Intake and Output 05/04/21 05/05/21 05/05/21 22:59 06:59 14:59 Output Total 50 Balance -50 Output: Drainage 50 Left Back 50 Other: Voiding Method Incontinent Weight 69.4 kg PHYSICAL EXAMINATION: GENERAL: The patient is alert and oriented x3, not in any acute distress. Well developed, well nourished. HEENT: Pupils are round and equally reacting to light. EOMI. No scleral icterus. No conjunctival pallor. Normocephalic, atraumatic. No pharyngeal erythema. No thyromegaly. CARDIOVASCULAR: S1 and S2 present. No murmurs, rubs, or gallops. PULMONARY: Chest is clear to auscultation, no wheezing or crackles. ABDOMEN: Nontender distended tympanic MUSCULOSKELETAL: No joint swelling or deformity. EXTREMITIES: No cyanosis, clubbing, or pedal edema. NEUROLOGICAL: Gross neurological examination did not reveal any focal deficits. SKIN: No rashes. Results CBC & Chem 7: 05/04/21 21:18 05/04/21 21:18 Labs: Abnormal Lab Results - Last 24 Hours (Table) 05/04/21 05/04/21 05/04/21 Range/Units 21:18 21:18 21:18 RBC 3.73 L (3.80-5.40) m/uL Hgb 9.9 L (11.4-16.0) gm/dL Hct 30.7 L (34.0-46.0) % RDW 16.8 H (11.5-15.5) % APTT 16.2 L (22.0-30.0) sec Sodium 135 L (137-145) mmol/L Chloride 109 H (98-107) mmol/L Carbon Dioxide 18 L (22-30) mmol/L BUN 29 H (7-17) mg/dL Creatinine 1.35 H (0.52-1.04) mg/dL Glucose 100 H (74-99) mg/dL Calcium 11.9 H (8.4-10.2) mg/dL Magnesium 2.4 H (1.6-2.3) mg/dL Albumin 3.2 L (3.5-5.0) g/dL Urine Appearance (Clear) Urine Protein (Negative) Urine Blood (Negative) Ur Leukocyte Esterase (Negative) Urine RBC (0-5) /hpf Urine WBC (0-5) /hpf Urine WBC Clumps (None) /hpf Ur Squamous Epith Cells (0-4) /hpf Amorphous Sediment (None) /hpf Urine Bacteria (None) /hpf 05/04/21 Range/Units 21:18 RBC (3.80-5.40) m/uL Hgb (11.4-16.0) gm/dL Hct (34.0-46.0) % RDW (11.5-15.5) % APTT (22.0-30.0) sec Sodium (137-145) mmol/L Chloride (98-107) mmol/L Carbon Dioxide (22-30) mmol/L BUN (7-17) mg/dL Creatinine (0.52-1.04) mg/dL Glucose (74-99) mg/dL Calcium (8.4-10.2) mg/dL Magnesium (1.6-2.3) mg/dL Albumin (3.5-5.0) g/dL Urine Appearance Turbid H (Clear) Urine Protein 2+ H (Negative) Urine Blood Large H (Negative) Ur Leukocyte Esterase Large H (Negative) Urine RBC >182 H (0-5) /hpf Urine WBC >182 H (0-5) /hpf Urine WBC Clumps Many H (None) /hpf Ur Squamous Epith Cells 20 H (0-4) /hpf Amorphous Sediment Few H (None) /hpf Urine Bacteria Many H (None) /hpf Microbiology - Last 24 Hours (Table) 05/04/21 22:19 Urine Culture - Preliminary Urine,Catheterized Assessment and Plan Plan: -Encephalopathy, altered mental status: Resolved at this time probably toxic encephalopathy from excess opiates which will be held at this time. Will use her tramadol for pain. -Hematuria and possibility of future care that cannot be completely ruled out at this time patient will be continued on Rocephin as mentioned above -Chronic kidney disease stage III -Abdominal pain secondary to constipation: Abdominal x-ray will be obtained patient will be started on lactulose avoid opiates for pain except for tramadol. -Nicotine abuse: Counseling was provided -Anxiety disorder -Hypothyroidism -DVT prophylaxis with subcutaneous heparin
--- NOTE | 2021-05-05 15:12 | XR ---
EXAMINATION TYPE: XR abdomen 2V DATE OF EXAM: 05/05/2021 CLINICAL HISTORY: History of bladder cancer with abdominal pain TECHNIQUE: Supine and upright views of the abdomen are obtained. COMPARISON: CT abdomen and pelvis March 28, 2021. FINDINGS: Gas prominent small and large bowel loops throughout the abdomen now present more severe ve rsus comparison CT. There is new left-sided percutaneous nephrostomy noted. Lung bases remain clear. No free air. Underlying levoconvex scoliosis redemonstrated. IMPRESSION: Overall nonspecific bowel gas pattern. Possible distal colonic obstruction versus ileus.
--- NOTE | 2021-05-05 17:28 | US ---
EXAMINATION TYPE: US kidneys/renal and bladder DATE OF EXAM: 05/05/2021 COMPARISON: CT CLINICAL HISTORY: complicated UTI. Bladder neoplasm diagnosed in March 2021; left renal stent with ex terior collection bag EXAM MEASUREMENTS: Right Kidney: 8.8 x 5.5 x 4.7 cm Left Kidney: 8.5 x 4.7 x 4.4 cm Post Void Residual Volume: not assessed on EC patient Right Kidney: mid lower pole cystic cluster = 2.3 x 1.6 x 1.8cm Left Kidney: inferior cortical cyst = 1.3 x 1.2 x 1.3cm; renal stent seen within left kidney as paral lel hyperechoic lines Bladder: complex mass appearance to entire bladder Bilateral Jets seen: no There is no evidence for hydronephrosis at this point. IMPRESSION: Bilateral renal cortical cysts. No evidence of solid renal mass. Increased echogenicity in the bladde r consistent with bladder mass. No hydronephrosis.
[2021-05-05] MEDS: SODIUM CHLORIDE 0.9% 1,000 ML IV SCH (19:55)
[2021-05-05] MEDS ORDERED: MORPHINE SULFATE 2 MG/ML SYRINGE IVP PRN (20:11)
[2021-05-05] MEDS ORDERED: MORPHINE SULFATE 2 MG/ML SYRINGE IVP ONE (20:30)
[2021-05-05 21:31] LABS: Anisocytosis Slight; HCT 31.8 % (34.0-46.0); HGB 10.1 gm/dL (11.4-16.0); Hypochromasia Marked; MCH 26.5 pg (25.0-35.0); MCHC 31.6 g/dL (31.0-37.0); MCV 83.9 fL (80.0-100.0); Mean Platelet Volume 8.2; Platelet Count 134 k/uL (150-450); RBC 3.79 m/uL (3.80-5.40); RDW 16.8 % (11.5-15.5); WBC 5.7 k/uL (3.8-10.6)
[2021-05-05] MEDS: HEPARIN SODIUM,PORCINE/PF 5,000 UNIT/0.5 ML SYRINGE SQ SCH (21:46)
[2021-05-05] MEDS: PANTOPRAZOLE 40 MG/10 ML VIAL IVP SCH (21:46)
[2021-05-05] MEDS: CEFEPIME 2 GM in SODIUM CHLORIDE 0.9% 100 ML IVPB SCH (21:47)
[2021-05-05] MEDS: QUEtiapine 50 MG TAB PO SCH (21:58)
--- NOTE | 2021-05-05 22:44 | CONS ---
CONSULTATION DATE OF SERVICE: 05/05/2021 REASON FOR CONSULTATION: Complicated UTI. HISTORY OF PRESENT ILLNESS: The patient is a 70-year-old female who was recently diagnosed with bladder cancer in this patient who is status post resection of the bladder tumor which was extensive on 03/02/2021, the patient tolerated the procedure. The patient mentioned she has not felt better since the procedure and continued to have some abdominal pain. The patient noticed to have left-sided hydronephrosis and the patient is status post left nephrostomy tube placement on 04/04/2021. The patient has now been brought to [facility] ER last night for evaluation of increased mental status changes and generalized weakness for the last 2 weeks. The patient seemed to have declined, has been very confused, weak and unable to care for herself. The patient denies having any headache or URI symptoms. The patient denies having any chest pain, shortness of breath or cough. Complaining of some abdominal pain. However unable to quantify any further. Some nausea and decreased oral intake, but no vomiting. No diarrhea or significant urinary symptoms. With these symptoms, the patient was evaluated by the ER physician. On arrival to the ER the patient was afebrile. The patient did have a normal white count. Creatinine was mildly 1.35. The patient did have positive UA. She was started on cefepime that was switched to Rocephin and Infectious disease was consulted for further management of antibiotic therapy. The patient did have a CT of the brain that was negative for any bleed. Abdominal x-ray nonspecific bowel gas pattern. REVIEW OF SYSTEMS: Positive points have been mentioned in HPI. Rest of the systems are negative. PAST MEDICAL HISTORY: Bladder cancer, Graves disease, brain tumor, thyroid surgery. PAST SURGICAL HISTORY: Hysterectomy, tonsillectomy and intraurethral resection of the bladder tumor, left nephrostomy tube placement. SOCIAL HISTORY: Current everyday smoker. No drinking or drug use. FAMILY HISTORY: No pertinent findings noticed. ALLERGIES: PENICILLIN. Tolerated cephalosporin without any problem. MEDICATIONS: The patient is on heparin, lactulose, Synthroid and Narcan and Zofran, Tramadol. PHYSICAL EXAMINATION: VITAL SIGNS: Blood pressure 150/50 with a pulse of 50, temperature 98.2. She is 93% on room air. General description: The patient is an elderly female lying in bed in no distress. No tachypnea or accessory muscles of respiration use. HEENT: Examination shows slight pallor. No scleral icterus. Oral mucous membranes dry. NECK: Trachea central. No thyromegaly. LUNGS unlabored breathing. Clear to auscultation anteriorly. No wheeze or crackles. HEART S1, S2. Regular rate and rhythm. ABDOMEN: Soft, slightly distended. No guarding. No rigidity. EXTREMITIES: No edema of the feet. SKIN examination: No rash or mass palpable. NEUROLOGICAL: Patient is awake, alert, oriented times two. Mood and affect normal. LABS: Hemoglobin 9.8, white count 5.2. BUN of 29, creatinine 1.35. Liver enzymes are normal. Urine was large leukocyte esterase, more than 1-2 WBC, nunez PCR was negative. DIAGNOSTIC IMPRESSION AND PLAN: Patient presented to the hospital with mental status changes, progressive worsening of her overall clinical condition in this patient who did have a history of bladder tumor, status postop transurethral resection of the bladder tumor and left nephrostomy subsequently, significantly positive UA has been obtained from the nephrostomy tube with concern for possible colonization versus a urinary tract infection. However, in view of overall clinical exposure in the hospital setting, we would need to cover for enteric gram-negative until the workup is completed. PLAN: 1. We will obtain ultrasound to make sure no evidence of any worsening hydronephrosis. 2. Antibiotic adjusted to cefepime 2 g q 12h. 3. IV fluid. 4. We will follow on clinical condition and further adjust medication if needed. Thank you for this consultation. We will follow this patient along with you. MMODL / IJN: [id number] /
--- NOTE | 2021-05-06 02:57 | XR ---
EXAM: XR Chest, 1 View CLINICAL HISTORY: ITS.REASON XR Reason: Check NG placement TECHNIQUE: Frontal view of the chest. COMPARISON: No relevant prior studies available. FINDINGS: Lungs: Subsegmental density in the right mid to lower lung is similar to the previous limited abdominal image. Subsegmental changes at the left lung base appear to be new. No lobar consolidation. Pulmonary vasculature is unremarkable. Pleural space: Unremarkable. No pneumothorax. No large pleural effusion. Heart: Unremarkable. No cardiomegaly. Mediastinum: No significant abnormality identified. The trachea is midline. Bones/joints: Unremarkable. Tubes, lines and devices: The nasogastric tube traverses the mediastinum and extends into the abdomen. The tip is not identified. IMPRESSION: The nasogastric tube traverses the mediastinum and extends into the abdomen. The tip is not identified. Recommend abdominal image for evaluation of the nasogastric tube tip.
[2021-05-06] MEDS: HEPARIN SODIUM,PORCINE/PF 5,000 UNIT/0.5 ML SYRINGE SQ SCH ×4 (05:07→23:46)
[2021-05-06] MEDS: SODIUM CHLORIDE 0.9% 1,000 ML IV SCH ×2 (05:08→21:30)
[2021-05-06 07:58] LABS: Potassium 3.2 mmol/L (3.5-5.1)
[2021-05-06 07:59] LABS: African American GFR (CKD) 45 (>60 ml/min/1.73 sqM); Anion Gap 6 mmol/L; Blood Urea Nitrogen 27 mg/dL (7-17); Carbon Dioxide 17 mmol/L (22-30); Chloride 117 mmol/L (98-107); Glucose 118 mg/dL (74-99); Non-African American GFR(CKD) 39 (>60 ml/min/1.73 sqM); Sodium 140 mmol/L (137-145)
[2021-05-06] MEDS: LEVOTHYROXINE 88 MCG TAB PO SCH (07:59)
[2021-05-06] MEDS: PANTOPRAZOLE 40 MG/10 ML VIAL IVP SCH ×2 (08:06→21:02)
[2021-05-06] MEDS: CEFEPIME 2 GM in SODIUM CHLORIDE 0.9% 100 ML IVPB SCH ×2 (08:06→21:00)
[2021-05-06] MEDS ORDERED: HYDROmorphone 1 MG/ML 1 ML SYRINGE IVP PRN (10:08)
[2021-05-06] MEDS ORDERED: Potassium Replacement Protocol 1 EACH MISC MISCELLANE PRN (10:09)
--- NOTE | 2021-05-06 10:33 | P.GSCN ---
History of Present Illness Consult date: 05/06/21 Reason for Consult: possible colonic obstruction versus ileus History of present illness: is a 70-year-old female who had some complaints of abdominal pain. Patient's workup in the emergency room. Her x-rays are suggestive of a distal colonic obstruction. There may be an ileus. Past Medical History Past Medical History: Cancer, Thyroid Disorder Additional Past Medical History / Comment(s): bladder cancer, Blind, Graves, Brain tumor, no surgery History of Any Multi-Drug Resistant Organisms: None Reported Past Surgical History: Hysterectomy, Tonsillectomy Additional Past Surgical History / Comment(s): Bladder surgery- tumor removed from bladder. eye sx Past Anesthesia/Blood Transfusion Reactions: No Reported Reaction Past Psychological History: Anxiety Smoking Status: Current every day smoker Past Alcohol Use History: None Reported Past Drug Use History: None Reported Medications and Allergies Home Medications Medication Instructions Recorded Confirmed Type QUEtiapine [SEROquel] 50 mg PO HS 02/24/21 05/04/21 History Levothyroxine Sodium [Synthroid] 175 mcg PO DAILY 03/05/21 05/04/21 History Morphine Sulfate [Morphine Sulfate 60 mg PO BID 03/05/21 05/04/21 History ER] Ergocalciferol (Vitamin D2) 1,250 mcg PO Q7D 05/04/21 05/04/21 History [Drisdol (50,000 Iu)] Hydrocortisone Cream 1 applic TOPICAL QID 05/04/21 05/04/21 History [Hydrocortisone 2.5% Cream] oxyCODONE HCL [OxyCONTIN] 20 mg PO BID 05/04/21 05/04/21 History Allergies Allergy/AdvReac Type Severity Reaction Status Date / Time Penicillins Allergy Dyspnea Verified 05/04/21 20:11 Surgical - Exam Vital Signs Temp Pulse Resp BP Pulse Ox 97.9 F 60 16 108/59 100 05/04/21 17:01 05/04/21 17:01 05/04/21 17:01 05/04/21 17:01 05/04/21 17:01 - General well developed, well nourished, no distress - Eyes PERRL - ENT normal pinna - Neck no masses - Respiratory normal expansion - Cardiovascular Rhythm: regular - Abdomen Abdomen: soft, non tender Results - Labs 05/05/21 20:44 05/06/21 06:39 Abnormal Lab Results - Last 24 Hours (Table) 05/05/21 05/06/21 Range/Units 20:44 06:39 RBC 3.79 L (3.80-5.40) m/uL Hgb 10.1 L (11.4-16.0) gm/dL Hct 31.8 L (34.0-46.0) % RDW 16.8 H (11.5-15.5) % Plt Count 134 L (150-450) k/uL Potassium 3.2 L (3.5-5.1) mmol/L Chloride 117 H (98-107) mmol/L Carbon Dioxide 17 L (22-30) mmol/L BUN 27 H (7-17) mg/dL Creatinine 1.38 H (0.52-1.04) mg/dL Glucose 118 H (74-99) mg/dL Calcium 11.0 H (8.4-10.2) mg/dL Microbiology - Last 24 Hours (Table) 05/05/21 23:27 Blood Culture Gram Stain - Preliminary Blood 05/04/21 23:27 Blood Culture - Final Blood 05/04/21 22:19 Urine Culture - Final Urine,Catheterized Diabetes panel 05/06/21 Range/Units 06:39 Sodium 140 (137-145) mmol/L Potassium 3.2 L (3.5-5.1) mmol/L Chloride 117 H (98-107) mmol/L Carbon Dioxide 17 L (22-30) mmol/L BUN 27 H (7-17) mg/dL Creatinine 1.38 H (0.52-1.04) mg/dL Glucose 118 H (74-99) mg/dL Calcium 11.0 H (8.4-10.2) mg/dL Calcium panel 05/06/21 Range/Units 06:39 Calcium 11.0 H (8.4-10.2) mg/dL Pituitary panel 05/06/21 Range/Units 06:39 Sodium 140 (137-145) mmol/L Potassium 3.2 L (3.5-5.1) mmol/L Chloride 117 H (98-107) mmol/L Carbon Dioxide 17 L (22-30) mmol/L BUN 27 H (7-17) mg/dL Creatinine 1.38 H (0.52-1.04) mg/dL Glucose 118 H (74-99) mg/dL Calcium 11.0 H (8.4-10.2) mg/dL Adrenal panel 05/06/21 Range/Units 06:39 Sodium 140 (137-145) mmol/L Potassium 3.2 L (3.5-5.1) mmol/L Chloride 117 H (98-107) mmol/L Carbon Dioxide 17 L (22-30) mmol/L BUN 27 H (7-17) mg/dL Creatinine 1.38 H (0.52-1.04) mg/dL Glucose 118 H (74-99) mg/dL Calcium 11.0 H (8.4-10.2) mg/dL Assessment and Plan Assessment: possible distal colonic dissection. Patient will undergo computed tomography scan of the abdomen with rectal contrast
[2021-05-06] MEDS: POTASSIUM CHLORIDE 10 MEQ in WATER FOR INJECTION 1 100ML.BAG IVPB SCH ×4 (13:31→19:36)
--- NOTE | 2021-05-06 13:43 | P.GSCN ---
History of Present Illness Consult date: 05/06/21 Reason for Consult: Bladder cancer History of present illness: This is a 70-year-old female that presents to the hospital with worsening abdomi nal pain, debility and weakness. She has a history of bladder cancer. 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 But of note. Images showed evidence of hydronephrosis with possible invasion into the vaginal apex, consistent with T3 versus T4 disease. Of note on cystoscopy the tumor was involving the majority of the bladder, could not be completely resected. She was evaluated at [facility] by Dr. Ngo for a possible cystectomy, but was deemed a poor surgical candidate. She complains of pelvic pain secondary to her malignancy. She has history of left-sided hydronephrosis secondary to obstruction from her tumor, this is being managed by nephrostomy tube. Her main complaint is her pelvic pain, and urinary incontinence. Denies any evidence of gross hematuria at this time Review of Systems - Constitutional Reports fatigue, Reports weakness, Reports weight loss, Denies chills, Denies fever - EENT Ears, nose, mouth and throat: Reports as per HPI - Cardiovascular Denies chest pain, Denies shortness of breath - Respiratory Denies cough, Denies 7 - Gastrointestinal Reports abdominal pain, Reports constipation - Genitourinary Genitourinary: Reports dysuria, Denies flank pain, Denies hematuria - Neurological Denies headaches, Denies syncope Past Medical History Past Medical History: Cancer, Thyroid Disorder Additional Past Medical History / Comment(s): bladder cancer, Blind, Graves, Brain tumor, no surgery History of Any Multi-Drug Resistant Organisms: None Reported Past Surgical History: Hysterectomy, Tonsillectomy Additional Past Surgical History / Comment(s): Bladder surgery- tumor removed from bladder. eye sx Past Anesthesia/Blood Transfusion Reactions: No Reported Reaction Past Psychological History: Anxiety Smoking Status: Current every day smoker Past Alcohol Use History: None Reported Past Drug Use History: None Reported Medications and Allergies Home Medications Medication Instructions Recorded Confirmed Type QUEtiapine [SEROquel] 50 mg PO HS 02/24/21 05/04/21 History Levothyroxine Sodium [Synthroid] 175 mcg PO DAILY 03/05/21 05/04/21 History Morphine Sulfate [Morphine Sulfate 60 mg PO BID 03/05/21 05/04/21 History ER] Ergocalciferol (Vitamin D2) 1,250 mcg PO Q7D 05/04/21 05/04/21 History [Drisdol (50,000 Iu)] Hydrocortisone Cream 1 applic TOPICAL QID 05/04/21 05/04/21 History [Hydrocortisone 2.5% Cream] oxyCODONE HCL [OxyCONTIN] 20 mg PO BID 05/04/21 05/04/21 History Allergies Allergy/AdvReac Type Severity Reaction Status Date / Time Penicillins Allergy Dyspnea Verified 05/04/21 20:11 Surgical - Exam Vital Signs Temp Pulse Resp BP Pulse Ox 97.9 F 60 16 108/59 100 05/04/21 17:01 05/04/21 17:01 05/04/21 17:01 05/04/21 17:01 05/04/21 17:01 - General moderate distress, severe pain - Eyes PERRL, normal ocular movement - ENT normal nares, normal mucosa - Respiratory normal expansion, normal respiratory effort - Abdomen Abdomen: tender, distended - Genitourinary Left nephrostomy draining clear urine - Psychiatric oriented to time, oriented to person, oriented to place, speech is normal Results - Labs 05/05/21 20:44 05/06/21 06:39 Abnormal Lab Results - Last 24 Hours (Table) 05/05/21 05/06/21 Range/Units 20:44 06:39 RBC 3.79 L (3.80-5.40) m/uL Hgb 10.1 L (11.4-16.0) gm/dL Hct 31.8 L (34.0-46.0) % RDW 16.8 H (11.5-15.5) % Plt Count 134 L (150-450) k/uL Potassium 3.2 L (3.5-5.1) mmol/L Chloride 117 H (98-107) mmol/L Carbon Dioxide 17 L (22-30) mmol/L BUN 27 H (7-17) mg/dL Creatinine 1.38 H (0.52-1.04) mg/dL Glucose 118 H (74-99) mg/dL Calcium 11.0 H (8.4-10.2) mg/dL Microbiology - Last 24 Hours (Table) 05/05/21 23:27 Blood Culture Gram Stain - Preliminary Blood 05/04/21 23:27 Blood Culture - Final Blood 05/04/21 22:19 Urine Culture - Final Urine,Catheterized Diabetes panel 05/06/21 Range/Units 06:39 Sodium 140 (137-145) mmol/L Potassium 3.2 L (3.5-5.1) mmol/L Chloride 117 H (98-107) mmol/L Carbon Dioxide 17 L (22-30) mmol/L BUN 27 H (7-17) mg/dL Creatinine 1.38 H (0.52-1.04) mg/dL Glucose 118 H (74-99) mg/dL Calcium 11.0 H (8.4-10.2) mg/dL Calcium panel 05/06/21 Range/Units 06:39 Calcium 11.0 H (8.4-10.2) mg/dL Pituitary panel 05/06/21 Range/Units 06:39 Sodium 140 (137-145) mmol/L Potassium 3.2 L (3.5-5.1) mmol/L Chloride 117 H (98-107) mmol/L Carbon Dioxide 17 L (22-30) mmol/L BUN 27 H (7-17) mg/dL Creatinine 1.38 H (0.52-1.04) mg/dL Glucose 118 H (74-99) mg/dL Calcium 11.0 H (8.4-10.2) mg/dL Adrenal panel 05/06/21 Range/Units 06:39 Sodium 140 (137-145) mmol/L Potassium 3.2 L (3.5-5.1) mmol/L Chloride 117 H (98-107) mmol/L Carbon Dioxide 17 L (22-30) mmol/L BUN 27 H (7-17) mg/dL Creatinine 1.38 H (0.52-1.04) mg/dL Glucose 118 H (74-99) mg/dL Calcium 11.0 H (8.4-10.2) mg/dL Assessment and Plan Assessment: This is a 70-year-old female history of bladder cancer, pathology showed transitional cell extensive squamous differentiation. On imaging evidence of T3 versus T4 disease. Was evaluated for possible cystectomy at [facility], was deemed a poor surgical candidate given her debility and physical status. Has been having worsening pain and incontinence. Bladder cancer involving the majority of her bladder, and could not be completely resected. She is unlikely to benefit from an additional TURBT, given the extensive tumor present in her bladder and the evidence of T3 versus T4 disease. Additionally TURBT unlikely to resolve her pain, and will more likely worsen her incontinence. She has been having worsening debility over the last few months, at this point she is bedbound, and a poor candidate for a radical cystectomy. -Will f/u on CT -Medical Oncology Consult, will discuss if she benefit from chemothe rapy/radiation for her bladder cancer. If she is not a candidate for EBRT/Chemo, Hospice is an option for her. But patient and her daughter Osiris not interested in proceeding with that at this time.
[2021-05-06] MEDS: KETOROLAC 15 MG/ML 1 ML VIAL IVP PRN ×2 (14:26→20:57)
[2021-05-06] MEDS ORDERED: MINERAL OIL 133 ML ENEMA RECTAL STA (15:52)
--- NOTE | 2021-05-06 15:53 | P.PN ---
Subjective 70-year-old female was brought in because of concerns of altered mental status. Patient is on multiple narcotic medications which is contributing to altered mental status patient is also constipated with the distended and tympanic abdomen patient is complaining of for severe crampy abdominal pain because of that. Marked any abdominal x-ray patient will be started on lactulose. Patient had a brain CT did not show any significant abnormality patient had a bladder mass which was partially resected patient denied any obvious immaturity although patient had urinalysis consistent with dementia with highly elevated white blood cell count and significant contamination. Since that partial tumor removal patient was having issues and functional decline. Although there is no obvious evidence of infection patient doesn't have leukocytosis and considering abnormal urine patient was started on cefepime which will be discontinued and patient was started on ceftriaxone until patient is evaluated by urology and if urology doesn't believe patient will require antibiotics at that time antibiotics were discontinued. 05/06/2021 Patient had an ultrasound of the kidney which showed bladder mass. Urology evaluated the patient and they do not believe TUBT will be helpful in relieving her symptoms of pain. Patient will be started on Toradol for pain patient creatinine improved avoid opiates considering her severe constipation patient has an NG tube patient is complaining of pain secondary to NG tube. Although patient is comfortable. Patient may need an edema. Patient is presently on lactulose. Patient pain on this admission is not secondary to bladder mass is secondary to constipation and now she says she has discomfort secondary to NG tube Constitutional: Denied any fatigue denied any fever. Cardio vascular: denied any chest pain, palpitations Gastrointestinal as mentioned above history Pulmonary: Denied any shortness of breath cough Neurologic denied any new focal deficits All inpatient medications were reviewed and appropriate changes in these medications as dictated in the interval history and assessment and plan. Objective - Vital Signs Vital signs: Vital Signs Temp 97.9 F 05/06/21 06:15 Pulse 54 L 05/06/21 06:15 Resp 16 05/06/21 06:15 BP 145/69 05/06/21 06:15 Pulse Ox 96 05/06/21 06:15 Intake & Output 05/05/21 05/06/21 05/06/21 18:59 06:59 18:59 Output Total 50 300 Balance -50 -300 Output: Gastric Drainage 300 Drainage 50 Left Back 50 Other: Voiding Method Incontinent - Exam PHYSICAL EXAMINATION: GENERAL: The patient is alert and oriented x3, not in any acute distress. Well developed, well nourished. HEENT: Pupils are round and equally reacting to light. EOMI. No scleral icterus. No conjunctival pallor. Normocephalic, atraumatic. No pharyngeal erythema. No thyromegaly. CARDIOVASCULAR: S1 and S2 present. No murmurs, rubs, or gallops. PULMONARY: Chest is clear to auscultation, no wheezing or crackles. ABDOMEN: Nontender distended tympanic, patient has an NG tube in place MUSCULOSKELETAL: No joint swelling or deformity. EXTREMITIES: No cyanosis, clubbing, or pedal edema. NEUROLOGICAL: Gross neurological examination did not reveal any focal deficits. SKIN: No rashes. - Labs CBC & Chem 7: 05/05/21 20:44 05/06/21 06:39 Labs: Abnormal Lab Results - Last 24 Hours (Table) 05/05/21 05/06/21 Range/Units 20:44 06:39 RBC 3.79 L (3.80-5.40) m/uL Hgb 10.1 L (11.4-16.0) gm/dL Hct 31.8 L (34.0-46.0) % RDW 16.8 H (11.5-15.5) % Plt Count 134 L (150-450) k/uL Potassium 3.2 L (3.5-5.1) mmol/L Chloride 117 H (98-107) mmol/L Carbon Dioxide 17 L (22-30) mmol/L BUN 27 H (7-17) mg/dL Creatinine 1.38 H (0.52-1.04) mg/dL Glucose 118 H (74-99) mg/dL Calcium 11.0 H (8.4-10.2) mg/dL Microbiology - Last 24 Hours (Table) 05/05/21 23:27 Blood Culture Gram Stain - Preliminary Blood Blood Culture - Preliminary Staphylococcus epidermidis 05/04/21 23:27 Blood Culture - Final Blood 05/04/21 22:19 Urine Culture - Final Urine,Catheterized Assessment and Plan Plan: -Encephalopathy, altered mental status: Resolved at this time probably toxic encephalopathy from excess opiates which will be held at this time. Will use IV Tylenol and tramadol for pain -Hematuria and possibility of urinary tract infection cannot be completely ruled out at this time patient will be continued on Rocephin as mentioned above -Chronic kidney disease stage III: Patient creatinine is around 1.3 today -Hypokalemia secondary to IV fluids which will be replaced -Abdominal pain secondary to constipation: Continue with lactulose patient may need an enema -Nicotine abuse: Counseling was provided -Anxiety disorder -Hypothyroidism -DVT prophylaxis with subcutaneous heparin
--- NOTE | 2021-05-06 18:02 | CT ---
EXAMINATION TYPE: CT abdomen pelvis wo con DATE OF EXAM: 05/06/2021 COMPARISON: 03/28/2021 HISTORY: Patient poor historian. Abdominal pain CT DLP: 485.4 mGycm Automated exposure control for dose reduction was used. Images obtained from the diaphragm to the floor the pelvis with no IV contrast. There is some rectal contrast in the distal large bowel. There are large bowel fluid levels. There is retained fecal material also in the large bowel. There is some interstitial infiltrate and atelectasis at the lung bases. There is nasogastric tube in the stomach. Stomach has normal size. Spleen is intact. There is no evidence of pancreatic mass. Annita er has normal size. There is no focal defect. The bile ducts are not dilated. Gallbladder shows irreg ular large calcified gallstone. There is no adrenal mass. There is left side nephrostomy tube noted. There is no hydronephrosis. Ther e is no retroperitoneal adenopathy. There is increased soft tissue density in the pelvis at the poste rior aspect of the urinary bladder and also contiguous with the uterus. It is not clear if this is fi broids or a bladder mass. This area measures 9 cm There is no inguinal hernia. Urinary bladder not well distended. Urinary bladder not well evaluated. There is no mesenteric edema. There is no ascites or free air. I do not see evidence for mechanical b owel obstruction. The rectal contrast material reaches the splenic flexure of the colon. There is no evidence of compression fracture of the lumbar spine. The bony pelvis is intact. There is thoracic mild dextroscoliosis. The hip joints appear intact. IMPRESSION: Complex pelvic mass could relate to bladder tumor also present on old CT scan. There is clearing of t he left side hydronephrosis compared to old exam. Nephrostomy tube appears to be in fairly good posit ion. There is probably some mild large bowel ileus. There is some mild atelectasis at the lung bases uncha nged.
--- NOTE | 2021-05-06 18:22 | PN ---
PROGRESS NOTE DATE OF SERVICE: 05/06/2021 REASON FOR FOLLOWUP: Complicated urinary tract infection. INTERVAL HISTORY: Patient is currently afebrile. The patient is breathing comfortably. Patient denies having any chest pain. No shortness of breath. Still complaining of abdominal pain. No cough. No vomiting. No diarrhea. PHYSICAL EXAMINATION: Blood pressure is 145/67, pulse of 54. Temperature 97.9. She is 96% on room air. General description is an elderly female lying in bed in no distress. Respiratory system: Unlabored breathing, clear to auscultation anteriorly. Heart S1, S2. Regular rate and rhythm. ABDOMEN: Soft, mildly distended. No guarding. No rigidity. EXTREMITIES: No edema of the feet. LABS: BUN of 27, creatinine 1.38, hemoglobin is 10.1, white count 5.7. Ultrasound was negative for any hydronephrosis. DIAGNOSTIC IMPRESSION AND PLAN: 1. Patient admitted to the hospital with abdominal pain in this patient who did have a bladder cancer status post resection with left-sided hydronephrosis requiring a nephrostomy tube placement. The patient did have ultrasound negative for any hydronephrosis. Patient is covered with cefepime to continue. 2. Patient did have a positive blood culture, Staph epi, likely contaminant. No need for vancomycin. MMODL / IJN: [id number] /
[2021-05-06] MEDS ORDERED: HYDROcodone/APAP 5-325MG 1 EACH TAB NG-TUBE PRN (22:56)
[2021-05-06] MEDS: QUEtiapine 50 MG TAB PO SCH (23:13)
[2021-05-07] MEDS: SODIUM CHLORIDE 0.9% 1,000 ML IV SCH ×3 (02:25→21:10)
[2021-05-07] MEDS: traMADol 50 MG TAB PO PRN ×3 (05:29→21:05)
[2021-05-07] MEDS: LEVOTHYROXINE 88 MCG TAB PO SCH (05:29)
[2021-05-07] MEDS: CEFEPIME 2 GM in SODIUM CHLORIDE 0.9% 100 ML IVPB SCH ×2 (07:59→21:10)
[2021-05-07] MEDS: PANTOPRAZOLE 40 MG/10 ML VIAL IVP SCH ×2 (07:59→21:05)
[2021-05-07] MEDS: NICOTINE 14MG/24HR PATCH TRANSDERM SCH (07:59)
[2021-05-07] MEDS: HEPARIN SODIUM,PORCINE/PF 5,000 UNIT/0.5 ML SYRINGE SQ SCH ×2 (07:59→15:40)
[2021-05-07] MEDS: KETOROLAC 15 MG/ML 1 ML VIAL IVP PRN (10:01)
--- NOTE | 2021-05-07 10:54 | P.PN ---
Progress Note - Text Progress Note Date: 05/07/21 The patient had some bowel movements yesterday. On exam vital signs are stable. Abdomen soft.. Patient be given lactulose through the NG tube today. She'll be observed.
--- NOTE | 2021-05-07 12:12 | P.PN ---
Subjective 70-year-old female was brought in because of concerns of altered mental status. Patient is on multiple narcotic medications which is contributing to altered mental status patient is also constipated with the distended and tympanic abdomen patient is complaining of for severe crampy abdominal pain because of that. Marked any abdominal x-ray patient will be started on lactulose. Patient had a brain CT did not show any significant abnormality patient had a bladder mass which was partially resected patient denied any obvious immaturity although patient had urinalysis consistent with dementia with highly elevated white blood cell count and significant contamination. Since that partial tumor removal patient was having issues and functional decline. Although there is no obvious evidence of infection patient doesn't have leukocytosis and considering abnormal urine patient was started on cefepime which will be discontinued and patient was started on ceftriaxone until patient is evaluated by urology and if urology doesn't believe patient will require antibiotics at that time antibiotics were discontinued. 05/06/2021 Patient had an ultrasound of the kidney which showed bladder mass. Urology evaluated the patient and they do not believe TUBT will be helpful in relieving her symptoms of pain. Patient will be started on Toradol for pain patient creatinine improved avoid opiates considering her severe constipation patient has an NG tube patient is complaining of pain secondary to NG tube. Although patient is comfortable. Patient may need an edema. Patient is presently on lactulose. Patient pain on this admission is not secondary to bladder mass is secondary to constipation and now she says she has discomfort secondary to NG tube 05/07/2021 Patient had left-sided nephrostomy. Patient did move her bowels yesterday after noon edema. Patient is receiving lactulose still abdomen is tympanic and patient is still constipated. Avoiding opiates for pain Constitutional: Denied any fatigue denied any fever. Cardio vascular: denied any chest pain, palpitations Gastrointestinal as mentioned above history Pulmonary: Denied any shortness of breath cough Neurologic denied any new focal deficits All inpatient medications were reviewed and appropriate changes in these medications as dictated in the interval history and assessment and plan. Objective - Vital Signs Vital signs: Vital Signs Temp 97.8 F 05/07/21 05:00 Pulse 50 L 05/07/21 05:00 Resp 18 05/07/21 05:00 BP 111/51 05/07/21 05:00 Pulse Ox 95 05/07/21 05:00 Intake & Output 05/06/21 05/07/21 05/07/21 18:59 06:59 18:59 Output Total 200 Balance -200 Output: Drainage 200 Left Back 200 - Exam PHYSICAL EXAMINATION: GENERAL: The patient is alert and oriented x3, not in any acute distress. Well developed, well nourished. HEENT: Pupils are round and equally reacting to light. EOMI. No scleral icterus. No conjunctival pallor. Normocephalic, atraumatic. No pharyngeal erythema. No thyromegaly. CARDIOVASCULAR: S1 and S2 present. No murmurs, rubs, or gallops. PULMONARY: Chest is clear to auscultation, no wheezing or crackles. ABDOMEN: Nontender distended tympanic, distention much better compared to yesterday, patient has an NG tube in place MUSCULOSKELETAL: No joint swelling or deformity. EXTREMITIES: No cyanosis, clubbing, or pedal edema. NEUROLOGICAL: Gross neurological examination did not reveal any focal deficits. SKIN: No rashes. - Labs CBC & Chem 7: 05/05/21 20:44 05/06/21 21:32 Labs: Microbiology - Last 24 Hours (Table) 05/05/21 23:27 Blood Culture Gram Stain - Preliminary Blood Blood Culture - Preliminary Staphylococcus epidermidis Assessment and Plan Plan: -Encephalopathy, altered mental status: Resolved at this time probably toxic encephalopathy from excess opiates which will be held at this time. Will use IV Tylenol and tramadol for pain -Hematuria and possibility of urinary tract infection, pyelonephritis and patient is on cefepime for pyelonephritis and patient has a nephrostomy tube urine cultures did not show any other significant abnormality, showed normal jim .blood culture staph epidermidis is a contamination -Chronic kidney disease stage III: Patient creatinine is around 1.3 today -Hypokalemia secondary to IV fluids which will be replaced -Abdominal pain secondary to constipation: Continue with lactulose patient may need an enema -Nicotine abuse: Counseling was provided -Anxiety disorder -Hypothyroidism -DVT prophylaxis with subcutaneous heparin
--- NOTE | 2021-05-07 12:35 | CONS ---
CONSULTATION DATE OF SERVICE: May 07, 2021 REASON FOR CONSULTATION: Bladder carcinoma. CHIEF COMPLAINT: The patient is confused and very lethargic. 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 The patient underwent transurethral resection of bladder tumor on March 02, 2021. Her CT scan revealed evidence of hydronephrosis with possible invasion into the vaginal apex consistent with T3 or T4 disease. Her tumor was not completely excised. She had a significant amount of the tumor in her bladder. She was referred to [facility] for possible cystectomy. However, due to her poor performance status, she was felt not to be a surgical candidate. She developed left-sided hydronephrosis secondary to obstruction from her tumor and she ended up having a nephrostomy tube. She came in to the hospital with altered mental status and complaining of abdominal pain and she was found to have ileus and an NG tube was inserted. She did have a repeat CT scan of the abdomen and pelvis which revealed evidence of a complex pelvic mass in the bladder. The patient is a very poor historian and difficult to obtain any history from her. However, I did contact her daughter Osiris and she stated that has been declining over the last several months. She has significant incontinence. She is difficult to ambulate. She required a lot of assistance from her family. She has lost weight as well. In regard to her brain tumor, according to her daughter Osiris, she was diagnosed with it when she was in her 30s and she was told that it is inoperable. The patient currently being treated was for possible urinary tract infection. Her narcotics were adjusted in order to help her mental status. PAST MEDICAL HISTORY: In addition to what is stated above in regard to her recent diagnosis of bladder cancer, she had a brain tumor in the past. She had thyroid disorder. She is blind. She has Graves disease. She had a hysterectomy in the past, tonsillectomy. She has a history of anxiety. SOCIAL HISTORY: She is a smoker. No alcohol abuse. FAMILY HISTORY: Is difficult to obtain from the patient. REVIEW OF SYSTEMS: Unobtainable from the patient. PHYSICAL EXAMINATION: GENERAL: She is very lethargic. She has an NG tube in and she is cachectic-looking. VITAL SIGNS: Her vital signs are temperature 97.8, afebrile, pulse 50 and regular, respiration 18, blood pressure 111/51. HEENT: Normocephalic, atraumatic. NECK: Supple. CHEST: Equal expansion bilaterally. LUNGS: Clear. HEART: Heart is regular. ABDOMEN: Slightly distended. There is evidence of some tenderness to palpation. EXTREMITIES: The lower extremities are contracted. There is no edema. LYMPHATICS: No peripherally enlarged cervical or supraclavicular nodes. LABORATORY DATA: WBC of 5.7, hemoglobin 10.1, hematocrit 31.9, platelets are 134. Sodium 140, potassium 3.2, chloride 117, BUN is 27, creatinine 1.8. Her calcium is 11. CURRENT MEDICATION: Include cefepime 2 g IV piggyback q.12 hours, heparin 5000 units subcu q.8 hours, Tigrett as needed, Toradol 15 mg every 6 hours as needed, Synthroid 176 mcg daily, Zofran as needed, Protonix 40 mg IV b.i.d., Seroquel 50 mg q.h.s., Tramadol 50 mg q.i.d. IMPRESSION: 1. At least locally advanced high-grade urothelial carcinoma with squamous cell differentiation. 2. Altered mental status. This is multifactorial, in part could be due to narcotic or possible UTI and also the patient has hypercalcemia. 3. Hypercalcemia likely related to her malignancy and possible underlying dehydration as well. 4. Rapidly declining performance status. RECOMMENDATION: 1. Overall prognosis is poor. 2. Based on her current condition, the patient is not a candidate for cystectomy and also she is not a candidate for chemo or radiation therapy. 3. The patient probably would be best served at this point in time was comfort care and hospice care. I did discuss her care was Dr. Forrest over the phone and he is agreeable to comfort care and hospice. I also called her daughter Osiris and discussed the patient's care over the phone with her and I would recommend hospice and they are agreeable to proceed with hospice care. Thank you very much for asking me to participate cares and care of this patient. Time spent with coordinating care and discussion was about 45 minute. MMODL / IJN: [id number] /
[2021-05-07] MEDS: LACTULOSE 20 GM/30 ML CUP PO SCH ×3 (13:11→21:05)
--- NOTE | 2021-05-07 19:45 | PN ---
PROGRESS NOTE DATE OF SERVICE: 05/07/2021 REASON FOR FOLLOWUP: Complicated urinary tract infection. INTERVAL HISTORY: Patient is currently afebrile. The patient is breathing comfortably. The patient is slightly sleepy, lethargic and unable to provide any history. No vomiting, diarrhea or any change reported by nursing staff. PHYSICAL EXAMINATION: Blood pressure is 130/58 with a pulse of 52, temperature is 97.7. She is 98% on room air. General description is an elderly female who is lying in bed in no distress. Respiratory system: Unlabored breathing, clear to auscultation anteriorly. Heart S1, S2. Regular rate and rhythm. Abdomen is soft, slightly distended. No guarding. No rigidity. LABS: Hemoglobin is 10.1, white count 4.7 on admission, creatinine 1.38. Urine came back negative. DIAGNOSTIC IMPRESSION AND PLAN: 1. Patient with positive blood culture, likely contaminant, no need for vancomycin. 2. Possible complicated UTI with bladder tumor status post resection and nephrostomy tube for the hydronephrosis, resolved on recent CAT scan. On empiric Zosyn to continue while waiting for the condition to stabilize and monitor clinical course closely. MMODL / IJN: [id number] /
[2021-05-07] MEDS: QUEtiapine 50 MG TAB PO SCH (21:05)
[2021-05-08] MEDS: HEPARIN SODIUM,PORCINE/PF 5,000 UNIT/0.5 ML SYRINGE SQ SCH ×2 (00:02→07:39)
[2021-05-08] MEDS: traMADol 50 MG TAB PO PRN ×2 (02:50→09:13)
[2021-05-08] MEDS: SODIUM CHLORIDE 0.9% 1,000 ML IV SCH (02:54)
[2021-05-08] MEDS: LEVOTHYROXINE 88 MCG TAB PO SCH (06:06)
[2021-05-08 07:33] LABS: African American GFR (CKD) 51 (>60 ml/min/1.73 sqM); Anion Gap 7 mmol/L; Blood Urea Nitrogen 32 mg/dL (7-17); Calcium 10.8 mg/dL (8.4-10.2); Carbon Dioxide 12 mmol/L (22-30); Chloride 124 mmol/L (98-107); Glucose 82 mg/dL (74-99); Non-African American GFR(CKD) 44 (>60 ml/min/1.73 sqM); Potassium 5.3 mmol/L (3.5-5.1); Sodium 143 mmol/L (137-145)
[2021-05-08] MEDS: CEFEPIME 2 GM in SODIUM CHLORIDE 0.9% 100 ML IVPB SCH (07:39)
[2021-05-08] MEDS: PANTOPRAZOLE 40 MG/10 ML VIAL IVP SCH (07:40)
[2021-05-08] MEDS: LACTULOSE 20 GM/30 ML CUP PO SCH (07:40)
[2021-05-08] MEDS: NICOTINE 14MG/24HR PATCH TRANSDERM SCH (07:41)
--- NOTE | 2021-05-08 08:11 | P.PN ---
Subjective Progress Note Date: 05/07/21 no acute overnight event, Her symptoms are stable at baseline. Objective - Vital Signs Vital signs: Vital Signs Temp 97.7 F 05/07/21 12:24 Pulse 52 L 05/07/21 12:24 Resp 18 05/07/21 12:24 BP 130/58 05/07/21 12:24 Pulse Ox 98 05/07/21 12:24 Intake & Output 05/06/21 05/07/21 05/07/21 18:59 06:59 18:59 Output Total 200 Balance -200 Output: Drainage 200 Left Back 200 - Constitutional General appearance: Present: mild distress - Psychiatric Psychiatric Comment(s): patient is confused - Labs CBC & Chem 7: 05/05/21 20:44 05/06/21 21:32 Labs: Microbiology - Last 24 Hours (Table) 05/05/21 23:27 Blood Culture Gram Stain - Preliminary Blood Blood Culture - Preliminary Staphylococcus epidermidis Assessment and Plan Assessment: This is a 70-year-old female history of bladder cancer, pathology showed transitional cell extensive squamous differentiation. On imaging evidence of T3 versus T4 disease. Was evaluated for possible cystectomy at [facility], was deemed a poor surgical candidate given her debility and physical status. Has been having worsening pain and incontinence. Bladder cancer involving the majority of her bladder, and could not be completely resected. She is unlikely to benefit from an additional TURBT, given the extensive tumor present in her bladder and the evidence of T3 versus T4 disease. Additionally TURBT unlikely to resolve her pain, and will more likely worsen her incontinence. She has been having worsening debility over the last few months, at this point she is bedbound, and a poor candidate for a radical cystectomy. She was evaluated by Medical Oncology today, given her current status, she is a poor candidate for Chemotherapy and EBRT, She might be better served with hospice care. Agree with medical oncology recommendation, she is better served with hospice, discussed this with Dr Nolasco over the phone. I also had discussion with patient daughter Osiris over the phone. Given that she is not a candidate for surgery or EBR T/Chemotherapy she is better served with hospice care.
[2021-05-08 10:33] LABS: Anisocytosis Slight; HGB 9.9 gm/dL (11.4-16.0); Hypochromasia Marked; MCH 26.3 pg (25.0-35.0); MCHC 30.9 g/dL (31.0-37.0); MCV 85.2 fL (80.0-100.0); Mean Platelet Volume 8.2; Platelet Count 134 k/uL (150-450); RBC 3.75 m/uL (3.80-5.40); WBC 4.9 k/uL (3.8-10.6)
[2021-05-08 12:26] VITALS: BP 135/57; PULSE 52; RESP 18; TEMP 97.6
--- NOTE | 2021-05-08 13:36 | PN ---
PROGRESS NOTE DATE OF SERVICE: 05/08/2021 REASON FOR FOLLOWUP: Complicated urinary tract infection. INTERVAL HISTORY: The patient is afebrile. The patient is hemodynamically stable. The patient remains to be lethargic, unable to provide any history. No vomiting or diarrhea has been reported by the nursing staff. PHYSICAL EXAMINATION: Blood pressure 119/61, pulse 75, temperature 98.2. She is 98% on room air. General description is an elderly female lying in in bed in no distress. Respiratory system: Unlabored breathing. Clear to auscultation anteriorly. HEART: S1, S2. Regular rate and rhythm. ABDOMEN: Soft, nondistended. No guarding. No rigidity. LAB: Hemoglobin 11.1, white count 4.9. BUN 22, creatinine 1.24. Culture with Staph Epi. DIAGNOSTIC IMPRESSION AND PLAN: 1. Patient with positive blood culture, Staph epi likely skin contaminant off vancomycin. 2. Possible complicated urinary tract infection with history of bladder cancer, hydronephrosis nephrostomy tube. Cultures are negative. Plan for possible hospice may be appropriate. Antibiotic can be safely discontinued. MMODL / IJN: [id number] /
--- NOTE | 2021-05-08 14:30 | P.PN ---
Subjective Progress Note Date: 05/08/21 70-year-old female was brought in because of concerns of altered mental status. Patient is on multiple narcotic medications which is contributing to altered mental status patient is also constipated with the distended and tympanic abdomen patient is complaining of for severe crampy abdominal pain because of that. Marked any abdominal x-ray patient will be started on lactulose. Patient had a brain CT did not show any significant abnormality patient had a bladder mass which was partially resected patient denied any obvious immaturity although patient had urinalysis consistent with dementia with highly elevated white blood cell count and significant contamination. Since that partial tumor removal patient was having issues and functional decline. Although there is no obvious evidence of infection patient doesn't have leukocytosis and considering abnormal urine patient was started on cefepime which will be discontinued and patient was started on ceftriaxone until patient is evaluated by urology and if urology doesn't believe patient will require antibiotics at that time antibiotics were discontinued. 05/06/2021 Patient had an ultrasound of the kidney which showed bladder mass. Urology evaluated the patient and they do not believe TUBT will be helpful in relieving her symptoms of pain. Patient will be started on Toradol for pain patient creatinine improved avoid opiates considering her severe constipation patient has an NG tube patient is complaining of pain secondary to NG tube. Although patient is comfortable. Patient may need an enema. Patient is presently on lactulose. Patient pain on this admission is not secondary to bladder mass is secondary to constipation and now she says she has discomfort secondary to NG tube 05/07/2021 Patient had left-sided nephrostomy. Patient did move her bowels yesterday afternoon edema. Patient is receiving lactulose still abdomen is tympanic and patient is still constipated. Avoiding opiates for pain 05/08/2021 Patient's family has met with [facility] hospice today after they had discussions with oncology along with urology about hospice and have signed the paperwork patient to be GIP with comfort measures with the possibility of returning home with hospice is appropriate and patient does not pass in a few days. Patient was also being closely monitored by infectious disease and was maintained on IV antibiotics which are being discontinued by infectious disease at this time. [facility] and social work will be working on possible placement options or necessary discharge planning for hospice in the home setting. Patient is not eating and continues to moan in pain and also continues with NG tube which can be removed and discussed with nursing staff. Objective - Vital Signs Vital signs: Vital Signs Temp 98.2 F 05/08/21 05:00 Pulse 45 L 05/08/21 05:00 Resp 20 05/08/21 05:00 BP 119/61 05/08/21 05:00 Pulse Ox 98 05/08/21 05:00 Intake & Output 05/07/21 05/08/21 05/08/21 18:59 06:59 18:59 Intake Total 1300 Output Total 350 550 200 Balance -350 750 -200 Intake: Intake, IV Titration 1300 Amount Cefepime 2 gm In Sodium 100 Chloride 0.9% 100 ml @ 25 mls/hr IVPB Q12HR [facility] Rx #:[id number] Sodium Chloride 0.9% 1, 1200 000 ml @ 100 mls/hr IV . Q10H [facility] Rx#:[id number] Oral 0 Output: Gastric Drainage 350 150 Drainage 400 200 Left Back 400 200 Other: Voiding Method Incontinent Incontinent Ileal Conduit (Left) Ileal Conduit (Left) # Voids 2 - Exam GENERAL: The patient is alert and oriented x3, not in any acute distress. Well developed, well nourished. HEENT: Pupils are round and equally reacting to light. EOMI. No scleral icterus. No conjunctival pallor. Normocephalic, atraumatic. No pharyngeal erythema. No thyromegaly. CARDIOVASCULAR: S1, S2 are muffled PULMONARY: Diminished breath sounds bilaterally with some scattered rhonchi noted ABDOMEN: Nontender distended tympanic, distention much better compared to yesterday, patient has an NG tube in place MUSCULOSKELETAL: No joint swelling or deformity. EXTREMITIES: No cyanosis, clubbing, or pedal edema. NEUROLOGICAL: Gross neurological examination did not reveal any focal deficits. SKIN: No rashes. - Labs CBC & Chem 7: 05/08/21 10:05 05/08/21 06:37 Labs: Abnormal Lab Results - Last 24 Hours (Table) 05/08/21 05/08/21 Range/Units 06:37 10:05 RBC 3.75 L (3.80-5.40) m/uL Hgb 9.9 L (11.4-16.0) gm/dL Hct 32.0 L (34.0-46.0) % MCHC 30.9 L (31.0-37.0) g/dL RDW 17.0 H (11.5-15.5) % Plt Count 134 L (150-450) k/uL Potassium 5.3 H (3.5-5.1) mmol/L Chloride 124 H (98-107) mmol/L Carbon Dioxide 12 L (22-30) mmol/L BUN 32 H (7-17) mg/dL Creatinine 1.24 H (0.52-1.04) mg/dL Calcium 10.8 H (8.4-10.2) mg/dL Microbiology - Last 24 Hours (Table) 05/05/21 23:27 Blood Culture Gram Stain - Final Blood Blood Culture - Final Staphylococcus epidermidis Assessment and Plan Assessment: -Encephalopathy, altered mental status: Resolved at this time probably toxic encephalopathy from excess opiates -Hematuria and possibility of urinary tract infection, pyelonephritis and patient is on cefepime for pyelonephritis and patient has a nephrostomy tube -Chronic kidney disease stage III -Hypokalemia secondary to IV fluids -Abdominal pain secondary to constipation -Nicotine abuse: Counseling was provided -Anxiety disorder -Hypothyroidism -DVT prophylaxis Recommendations and discussion: Recommend to continue with current comfort measures to make the patient comfortable. Patient does have an NG tube and may discontinue. Patient's family has met with [facility] hospice after discussing in detail with urology and oncology about prognosis and have signed on with [facility] and patient is being made inpatient hospice under close observation with the possibility of hospice in the home once safe discharge planning is made. We'll continue with comfort measures and continue to monitor the patient closely. Prognosis remains extremely poor and guarded.
--- NOTE | 2021-05-08 14:33 | P.PN ---
Subjective Progress Note Date: 05/08/21 CHIEF COMPLAINT: Abdominal pain HISTORY OF PRESENT ILLNESS: Surgical service is following regards to patient's ileus. She did have bowel movements after the lactulose. Patient has known bladder cancer with pelvic mass. Patient evaluated by urology and apparently she was deemed a poor surgical candidate for cyst[facility] at [facility]. Patient's overall condition is poor. She is being placed on hospice care today. Patient does moan with discomfort in her abdomen. Afebrile. Has NG tube in place with 150 out night. WBC is 4.9 hemoglobin 9.9 creatinine 1.24 potassium 5.3 PHYSICAL EXAM: VITAL SIGNS: Reviewed. GENERAL: Well-developed in no acute distress. HEENT: No sclera icterus. Extraocular movements grossly intact. Moist buccal mucosa. Head is atraumatic, normocephalic. ABDOMEN: Soft. Nondistended. Diffuse tenderness NEUROLOGIC: Alert and oriented. Cranial nerves II through XII grossly intact. ASSESSMENT: 1. Ileus 2. Constipation 3. Abdominal pain 4. Bladder cancer PLAN: -Patient is being transitioned to hospice care today Physician Coal Sample Tester note has been reviewed by physician. Signing provider agrees with the documented findings, assessment, and plan of care. Objective - Vital Signs Vital signs: Vital Signs Temp 97.6 F 05/08/21 12:25 Pulse 52 L 05/08/21 12:25 Resp 18 05/08/21 12:25 BP 135/57 05/08/21 12:25 Pulse Ox 98 05/08/21 12:25 Intake & Output 05/07/21 05/08/21 05/08/21 18:59 06:59 18:59 Intake Total 1300 Output Total 350 550 200 Balance -350 750 -200 Intake: Intake, IV Titration 1300 Amount Cefepime 2 gm In Sodium 100 Chloride 0.9% 100 ml @ 25 mls/hr IVPB Q12HR [facility] Rx #:[id number] Sodium Chloride 0.9% 1, 1200 000 ml @ 100 mls/hr IV . Q10H [facility] Rx#:[id number] Oral 0 Output: Gastric Drainage 350 150 Drainage 400 200 Left Back 400 200 Other: Voiding Method Incontinent Incontinent Ileal Conduit (Left) Ileal Conduit (Left) # Voids 2 - Labs CBC & Chem 7: 05/08/21 10:05 05/08/21 06:37 Labs: Abnormal Lab Results - Last 24 Hours (Table) 05/08/21 05/08/21 Range/Units 06:37 10:05 RBC 3.75 L (3.80-5.40) m/uL Hgb 9.9 L (11.4-16.0) gm/dL Hct 32.0 L (34.0-46.0) % MCHC 30.9 L (31.0-37.0) g/dL RDW 17.0 H (11.5-15.5) % Plt Count 134 L (150-450) k/uL Potassium 5.3 H (3.5-5.1) mmol/L Chloride 124 H (98-107) mmol/L Carbon Dioxide 12 L (22-30) mmol/L BUN 32 H (7-17) mg/dL Creatinine 1.24 H (0.52-1.04) mg/dL Calcium 10.8 H (8.4-10.2) mg/dL Microbiology - Last 24 Hours (Table) 05/05/21 23:27 Blood Culture Gram Stain - Final Blood Blood Culture - Final Staphylococcus epidermidis
--- NOTE | 2021-05-09 15:25 | P.DS ---
Providers Date of admission: 05/08/21 08:10 Expected date of discharge: 05/08/21 Attending physician: Paula Valle Consults: 05/04/21 22:54 Consult Physician Stat Consulting Provider: Eddie Forrest Consult Reason/Comments: UTI; Hx bladder cancer Do you want consulting provider notified?: Already Contacted 05/04/21 22:55 Consult Physician Routine Consulting Provider: Gisella Daniels Consult Reason/Comments: UTI; altered mental status Do you want consulting provider notified?: Yes 05/06/21 05:18 Consult Physician Urgent Consulting Provider: All Soares Consult Reason/Comments: Possible bowel obstruction Do you want consulting provider notified?: Yes, Notify in am 05/06/21 15:33 Consult Physician Stat Consulting Provider: Cami Nolasco Consult Reason/Comments: Bladder Cancer history Do you want consulting provider notified?: Already Contacted Primary care physician: She Peña Hospital Course: Final diagnosis -Encephalopathy, altered mental status: Resolved at this time probably toxic encephalopathy from excess opiates which will be held at this time. Will use her tramadol for pain. -Hematuria and possibility of future care that cannot be completely ruled out at this time patient will be continued on Rocephin as mentioned above -Chronic kidney disease stage III -Abdominal pain secondary to constipation: Abdominal x-ray will be obtained patient will be started on lactulose avoid opiates for pain except for tramadol. -Nicotine abuse: Counseling was provided -Anxiety disorder -Hypothyroidism -DVT prophylaxis -No code, no CPR, no vent Discharge disposition Patient is being transferred in a stable condition with guarded prognosis to continue inpatient with hospice comfort care services. [facility] following and working on safe discharge planning and possible hospice care in the home setting. Total time taken is greater than 35 minutes. Hospital course This is a 70-year-old female who was recently admitted with altered mental status and was being closely monitored. She was maintained on IV antibiotic therapy for possible urinary tract infection and infectious disease was following. Per infectious disease, Ok to safely discontinue antibiotics as patient and family have met with [facility] after a lengthy discussion with urology and oncology and would like to proceed with hospice comfort care measures only. Patient will be made inpatient hospice with [facility] following closely and planning on safe discharge planning with possible home hospice if pain is managed. Currently no reports of chest pain, shortness of breath, or palpitations. Patient is afebrile. No reports of nausea or vomiting. Prognosis remains poor and guarded. On exam vital signs are stable. Cardio S1, S2 are muffled. Respiratory system shows diminished breath sounds at the bases with no wheezing or rhonchi noted. Abdomen is distended and obese, and mildly tender. Nervous system shows diffuse weakness. Patient Condition at Discharge: Poor Plan - Discharge Summary New Discharge Prescriptions: No Action QUEtiapine [SEROquel] 50 mg PO HS Levothyroxine Sodium [Synthroid] 175 mcg PO DAILY Hydrocortisone Cream [Hydrocortisone 2.5% Cream] 1 applic TOPICAL QID Ergocalciferol (Vitamin D2) [Drisdol (50,000 Iu)] 1,250 mcg PO Q7D Morphine Sulfate [Morphine Sulfate ER] 60 mg PO BID oxyCODONE HCL [OxyCONTIN] 20 mg PO BID Discharge Medication List QUEtiapine [SEROquel] 50 mg PO HS 02/24/21 [History] Levothyroxine Sodium [Synthroid] 175 mcg PO DAILY 03/05/21 [History] Morphine Sulfate [Morphine Sulfate ER] 60 mg PO BID 03/05/21 [History] Ergocalciferol (Vitamin D2) [Drisdol (50,000 Iu)] 1,250 mcg PO Q7D 05/04/21 [History] Hydrocortisone Cream [Hydrocortisone 2.5% Cream] 1 applic TOPICAL QID 05/04/21 [History] oxyCODONE HCL [OxyCONTIN] 20 mg PO BID 05/04/21 [History] Follow up Appointment(s)/Referral(s): Mariana Nowak MD [Primary Care Provider] - 1-2 days
== END 2021-05-08 12:41 | disposition hospice, home (50) | DRG 92 ==
LOC: EC 16:56 → 5NMEDONC 05-05 00:11 → OBSVTOIN 05-08 08:10
PROVIDERS: ADMIT Hospitalist; ATTEND Hospitalist
DX: G92 Toxic encephalopathy (principal); K56.7 Ileus, unspecified; N13.30 Unspecified hydronephrosis; R31.9 Hematuria, unspecified; N39.0 Urinary tract infection, site not specified; T40.605A Adverse effect of unspecified narcotics, initial encounter; C67.9 Malignant neoplasm of bladder, unspecified; F17.200 Nicotine dependence, unspecified, uncomplicated; N18.30 Chronic kidney disease, stage 3 unspecified; R32 Unspecified urinary incontinence; Z90.710 Acquired absence of both cervix and uterus; E83.52 Hypercalcemia; Z51.5 Encounter for palliative care; Z66 Do not resuscitate; Z20.822 Contact with and (suspected) exposure to COVID-19; E87.6 Hypokalemia; F41.9 Anxiety disorder, unspecified; Z79.890 Hormone replacement therapy; Z88.0 Allergy status to penicillin; E03.9 Hypothyroidism, unspecified; K59.00 Constipation, unspecified; R19.00 Intra-abdominal and pelvic swelling, mass and lump, unspecified site; F03.90 Unspecified dementia, unspecified severity, without behavioral disturbance, psychotic disturbance, mood disturbance, and anxiety; G89.3 Neoplasm related pain (acute) (chronic); Z74.01 Bed confinement status; Z93.6 Other artificial openings of urinary tract status; H54.7 Unspecified visual loss; D49.6 Neoplasm of unspecified behavior of brain
CPT/HCPCS: 36415; 70450; 71045; 74019; 74176; 76770; 80048; 80053; 81001; 81003; 83605; 83735; 84132; 84484; 85025; 85027; 85610; 85730; 87040; 87077; 87086; 87186; 87635; 93005; 99285

== ENCOUNTER 2021-05-08 11:32 | Inpatient (IN) | payer MEDICAID ==
[2021-05-08] MEDS ORDERED: ACETAMINOPHEN SUPPOSITORY 650 MG SUPP RECTAL PRN (12:33)
[2021-05-08] MEDS ORDERED: ONDANSETRON 4 MG/2 ML VIAL IVP PRN (12:33)
[2021-05-08] MEDS ORDERED: SCOPOLAMINE 1.5MG/72HR PATCH TRANSDERM SCH (13:00)
[2021-05-08] MEDS: MORPHINE CONC SOLN 10mg/0.5mL ORAL SYRG SL SCH ×3 (13:25→20:08)
[2021-05-08] MEDS: MORPHINE SULFATE 2 MG/ML SYRINGE IV PRN (14:24)
[2021-05-08] MEDS: LORazepam 2 MG/ML INJ IV PRN (16:51)
[2021-05-09] MEDS: ATROPINE OPHTH SOLN 1% 5ML BTL SUBLINGUAL PRN ×3 (00:48→12:05)
[2021-05-09] MEDS: MORPHINE CONC SOLN 10mg/0.5mL ORAL SYRG SL SCH ×6 (00:51→20:33)
[2021-05-09] MEDS: LORazepam 2 MG/ML INJ IV PRN ×3 (00:55→08:24)
[2021-05-09 05:33] VITALS: TEMP 98.1
[2021-05-09] MEDS: MORPHINE SULFATE (100 MG/2 ML) 100 MG in SODIUM CHLORIDE 0.9% 100 ML IV SCH ×2 (11:27→13:39)
[2021-05-09] MEDS: LORazepam 1 MG TAB PO SCH ×3 (12:01→20:32)
[2021-05-09 12:59] VITALS: BP 110/54
--- NOTE | 2021-05-09 15:21 | P.HPIM ---
History of Present Illness H&P Date: 05/09/21 This is a 70-year-old female who was recently admitted for altered mental status and was being closely monitored. Patient is on multiple narcotic medications in the outpatient setting which is most likely contributing to the altered mental status and also having severe abdominal cramping and pain with distended abdomen and was placed on bowel regimen for constipation. Patient and family have met with [facility] and patient was admitted inpatient to hospice services comfort care measures. [facility] hospice and social work working on safe discharge planning and pain management control. Family does not want to continue with any other treatments or interventions and would like the patient to be comfortable. Urology and oncology has evaluated the patient and discussed with the family about prognosis. Review of Systems All systems: negative Constitutional: Denies chills, Denies fever Eyes: denies blurred vision, denies pain Ears, nose, mouth and throat: Denies headache, Denies sore throat Cardiovascular: Denies chest pain, Denies shortness of breath Respiratory: Denies cough Gastrointestinal: Reports abdominal pain, Reports constipation, Reports loss of appetite, Denies diarrhea, Denies nausea, Denies vomiting Genitourinary: Denies dysuria, Denies hematuria Musculoskeletal: Denies myalgias Integumentary: Denies pruritus, Denies rash Neurological: Denies numbness, Denies weakness Psychiatric: Denies anxiety, Denies depression Endocrine: Denies fatigue, Denies weight change Past Medical History Past Medical History: Cancer, Thyroid Disorder Additional Past Medical History / Comment(s): bladder cancer, Blind, Graves, Brain tumor, no surgery History of Any Multi-Drug Resistant Organisms: None Reported Past Surgical History: Hysterectomy, Tonsillectomy Additional Past Surgical History / Comment(s): Bladder surgery- tumor removed from bladder. eye sx Past Anesthesia/Blood Transfusion Reactions: No Reported Reaction Past Psychological History: Anxiety Smoking Status: Current every day smoker Past Alcohol Use History: None Reported Past Drug Use History: None Reported Medications and Allergies Home Medications Medication Instructions Recorded Confirmed Type QUEtiapine [SEROquel] 50 mg PO HS 02/24/21 05/08/21 History Levothyroxine Sodium [Synthroid] 175 mcg PO DAILY 03/05/21 05/08/21 History Morphine Sulfate [Morphine Sulfate 60 mg PO BID 03/05/21 05/08/21 History ER] Ergocalciferol (Vitamin D2) 1,250 mcg PO Q7D 05/04/21 05/08/21 History [Drisdol (50,000 Iu)] Hydrocortisone Cream 1 applic TOPICAL QID 05/04/21 05/08/21 History [Hydrocortisone 2.5% Cream] oxyCODONE HCL [OxyCONTIN] 20 mg PO BID 05/04/21 05/08/21 History Allergies Allergy/AdvReac Type Severity Reaction Status Date / Time Penicillins Allergy Dyspnea Verified 05/08/21 13:51 Physical Exam Vitals: Vital Signs Temp Pulse Resp BP BP Pulse Ox 05/09/21 05:00 98.1 F 52 L 20 138/72 97 05/08/21 22:20 97.4 F L 56 L 20 134/71 99 Intake and Output 05/08/21 05/09/21 05/09/21 22:59 06:59 14:59 Intake Total 0 Output Total 200 550 Balance -200 -550 Intake: Oral 0 Output: Urine 200 550 Other: # Voids 3 GENERAL: The patient is alert and oriented x2, resting more comfortably. Well developed, well nourished. HEENT: Pupils are round and equally reacting to light. EOMI. No scleral icterus. No conjunctival pallor. Normocephalic, atraumatic. No pharyngeal erythema. No thyromegaly. CARDIOVASCULAR: S1 and S2 muffled PULMONARY: Manage breath sounds bilaterally with a few scattered rhonchi noted. ABDOMEN: Non-tender, distended tympanic, more soft today MUSCULOSKELETAL: No joint swelling or deformity. EXTREMITIES: No cyanosis, clubbing, or pedal edema. NEUROLOGICAL: Gross neurological examination did not reveal any focal deficits. Diffusely weak SKIN: No rashes. Assessment and Plan Assessment: -Encephalopathy, altered mental status most likely secondary to toxic encephalopathy from excess opiates. -Hematuria -Chronic kidney disease stage III -Abdominal pain secondary to constipation -Nicotine abuse: Counseling was provided -Anxiety disorder -Hypothyroidism -DVT prophylaxis -No code, no CPR, no vent Recommendations and discussion: Recommend continue with [facility] hospice and comfort care measures. [facility] hospice along with social work planning on possible discharge planning in the morning if pain is under control and necessary equipment and supplies are obtained for the home as the patient will likely be going home with hospice. Will continue to monitor closely. Prognosis remains poor and guarded. Thus we'll discharge in 24 hours. Time with Patient: Greater than 30
[2021-05-09] MEDS: HYDROcodone/APAP 5-325MG 1 EACH TAB PO PRN (15:29)
[2021-05-10] MEDS: LORazepam 1 MG TAB PO SCH ×7 (00:19→20:06)
[2021-05-10] MEDS: MORPHINE CONC SOLN 10mg/0.5mL ORAL SYRG SL SCH ×6 (00:22→20:07)
[2021-05-10 04:42] VITALS: PULSE 74
[2021-05-10] MEDS: MORPHINE SULFATE 2 MG/ML SYRINGE IV PRN (09:26)
[2021-05-10] MEDS: MORPHINE SULFATE (100 MG/2 ML) 100 MG in SODIUM CHLORIDE 0.9% 100 ML IV SCH (12:22)
--- NOTE | 2021-05-10 13:34 | P.PN ---
Subjective Progress Note Date: 05/10/21 This is a 70-year-old female who was recently admitted for altered mental status and was being closely monitored. Patient is on multiple narcotic medications in the outpatient setting which is most likely contributing to the altered mental status and also having severe abdominal cramping and pain with distended abdomen and was placed on bowel regimen for constipation. Patient and family have met with [facility] and patient was admitted inpatient to hospice services comfort care measures. [facility] hospice and social work working on safe discharge planning and pain management control. Family does not want to continue with any other treatments or interventions and would like the patient to be comfortable. Urology and oncology has evaluated the patient and discussed with the family about prognosis. 05/10/2021 Patient is seen and evaluated and follow-up and discussed with [facility] nursing staff about managing pain medications and patient's abdominal pain continues to be elevated and will increase Roxanol. Also added [place] although patient isn't swallowing pills per nursing staff at this time. The plan is for the patient to return back to [place], [place] with family and continue with hospice in the home setting. Plan is in place for discharge tomorrow if pain is more controlled. Patient continues to moan during physical exam when palpating abdomen although is generalized and not waking up and responding verbally. Patient is extremely lethargic the mucous membranes are dry. No reports of chest pain or shortness of breath noted. Patient is sleeping throughout most of the day per nursing staff. Objective - Vital Signs Vital signs: Vital Signs Temp 98.1 F 05/09/21 05:00 Pulse 74 05/10/21 04:40 Resp 20 05/10/21 04:40 BP 110/54 05/09/21 12:45 Pulse Ox 94 L 05/10/21 04:40 Intake & Output 05/09/21 05/10/21 05/10/21 18:59 06:59 18:59 Intake Total 0 Output Total 400 Balance -400 Intake: Oral 0 Output: Urine 400 Other: Voiding Method Incontinent Diaper # Voids 4 - Exam GENERAL: The patient is alert and oriented x1-2, resting more comfortably. Well developed, well nourished. HEENT: Pupils are round and equally reacting to light. EOMI. No scleral icterus. No conjunctival pallor. Normocephalic, atraumatic. No pharyngeal erythema. No thyromegaly. CARDIOVASCULAR: S1 and S2 muffled PULMONARY: Manage breath sounds bilaterally with a few scattered rhonchi noted. ABDOMEN: Generalized tenderness on exam with no guarding or rigidity noted, mildly distended, more soft today MUSCULOSKELETAL: No joint swelling or deformity. EXTREMITIES: No cyanosis, clubbing, or pedal edema. NEUROLOGICAL: Gross neurological examination did not reveal any focal deficits. Diffusely weak SKIN: No rashes. Assessment and Plan Assessment: -Encephalopathy, altered mental status most likely secondary to toxic encephalopathy from excess opiates. -Hematuria -Chronic kidney disease stage III -Abdominal pain secondary to constipation -Nicotine abuse: Counseling was provided -Anxiety disorder -Hypothyroidism -DVT prophylaxis -No code, no CPR, no vent Recommendations and discussion: Recommend continue with [facility] hospice and comfort care measures. [facility] hospice along with social work planning on possible discharge planning back to [facility] with family tomorrow if pain is under control and necessary equipment and supplies are obtained for the home. Will continue to monitor closely. Prognosis remains poor and guarded. Possible discharge in 24 hours.
[2021-05-11] MEDS: LORazepam 1 MG TAB PO SCH ×4 (00:40→12:43)
[2021-05-11] MEDS: MORPHINE CONC SOLN 10mg/0.5mL ORAL SYRG SL SCH ×4 (00:41→12:43)
[2021-05-11] MEDS: HYDROcodone/APAP 5-325MG 1 EACH TAB PO PRN (02:44)
[2021-05-11 08:48] VITALS: RESP 18
[2021-05-11] MEDS: MORPHINE SULFATE 2 MG/ML SYRINGE IV PRN (12:43)
--- NOTE | 2021-05-11 15:36 | P.DS ---
Providers Date of admission: 05/08/21 12:43 Expected date of discharge: 05/11/21 Attending physician: Paula Valle Primary care physician: Stated None Hospital Course: Final diagnosis -Encephalopathy, altered mental status most likely secondary to toxic encephalopathy from excess opiates. -Hematuria -Chronic kidney disease stage III -Abdominal pain secondary to constipation -Nicotine abuse: Counseling was provided -Anxiety disorder -Hypothyroidism -DVT prophylaxis -No code, no CPR, no vent Discharge disposition Patient is being discharged in a stable condition with guarded prognosis to home and will continue with [facility] hospice comfort measures. Patient will follow-up with primary care provider as needed in the outpatient setting upon discharge. Patient is to continue with hemodialysis as scheduled. Total time taken is greater than 35 minutes. Hospital course This is a 70-year-old female who was recently admitted with altered mental status and was being closely monitored. Patient was recently made an patient wi th [facility] [place] hospice for better pain control management and comfort measures and family would like to take the patient home to [facility] and will continue with [facility] hospice services out there. Patient's pain is better managed on current regimen and will continue with [facility] [place] hospice. Currently no reports of chest pain, shortness of breath, or palpitations. Patient is afebrile. No reports of nausea or vomiting noted. Patient will be discharged home today with [facility] hospice services. Prognosis remains poor and guarded. On exam vital signs are stable. Cardio S1, S2 are muffled. Respiratory system shows diminished breath sounds at the bases with no wheezing or rhonchi noted. Abdomen is soft and nontender. Nervous system shows diffuse weakness. Please refer to medication reconciliation sheet for a list of medications. Patient Condition at Discharge: Poor Plan - Discharge Summary New Discharge Prescriptions: New LORazepam [Ativan] 1 mg PO Q4HR tab Atropine Ophth Soln 1% 5Ml [Isopto Atropine 1% 5Ml] 2 drops SUBLINGUAL Q4HR PRN bottle PRN Reason: Excess Secretions Scopolamine 1.5MG/72Hr Patch [TransDerm Scop] 1 patch TRANSDERM Q72H patch Acetaminophen Suppository [Tylenol Suppository] 650 mg RECTAL Q4HR PRN supp PRN Reason: Fever And/Or Mild Pain Continue Hydrocortisone Cream [Hydrocortisone 2.5% Cream] 1 applic TOPICAL QID Discontinued QUEtiapine [SEROquel] 50 mg PO HS Levothyroxine Sodium [Synthroid] 175 mcg PO DAILY Ergocalciferol (Vitamin D2) [Drisdol (50,000 Iu)] 1,250 mcg PO Q7D Morphine Sulfate [Morphine Sulfate ER] 60 mg PO BID oxyCODONE HCL [OxyCONTIN] 20 mg PO BID Discharge Medication List Hydrocortisone Cream [Hydrocortisone 2.5% Cream] 1 applic TOPICAL QID 05/04/21 [History] Acetaminophen Suppository [Tylenol Suppository] 650 mg RECTAL Q4HR PRN supp 05/11/21 [Rx] Atropine Ophth Soln 1% 5Ml [Isopto Atropine 1% 5Ml] 2 drops SUBLINGUAL Q4HR PRN bottle 05/11/21 [Rx] LORazepam [Ativan] 1 mg PO Q4HR tab 05/11/21 [Rx] Scopolamine 1.5MG/72Hr Patch [TransDerm Scop] 1 patch TRANSDERM Q72H patch 05/11/21 [Rx] Activity/Diet/Wound Care/Special Instructions: Patient Is going home with [facility] as tolerated Continue with comfort measures Diet as tolerated Follow-up with primary care provider Discharge Disposition: HOME WITH HOSPICE
== END 2021-05-11 13:20 | disposition hospice, home (50) | DRG 951 ==
LOC: 5NMEDONC 12:43
PROVIDERS: ADMIT Hospitalist; ATTEND Hospitalist
DX: Z51.5 Encounter for palliative care (principal); G92 Toxic encephalopathy; N18.30 Chronic kidney disease, stage 3 unspecified; E03.9 Hypothyroidism, unspecified; F17.200 Nicotine dependence, unspecified, uncomplicated; F41.9 Anxiety disorder, unspecified; H54.7 Unspecified visual loss; K59.00 Constipation, unspecified; Z79.890 Hormone replacement therapy; Z85.51 Personal history of malignant neoplasm of bladder; Z90.710 Acquired absence of both cervix and uterus